=== PATIENT | female | born 1945 | race Caucasian/White ===

== ENCOUNTER 2019-12-21 08:59 | Inpatient (IN) | payer MEDICARE, OTHER ==
--- NOTE | 2019-12-21 09:36 | ED ---
General Adult HPI - General Chief complaint: Shortness of Breath Stated complaint: Dyspnea Time Seen by Provider: 12/21/19 09:01 Source: patient, EMS, RN notes reviewed, old records reviewed (Reviewed records from [facility]) Mode of arrival: ambulatory Limitations: altered mental status - History of Present Illness Initial comments: Patient is a pleasant 74-year-old female presenting to the emergency Department with complaints of difficulty in breathing. Patient is a poor historian. Patient transferred from [facility] for dyspnea. Patient does have history of CHF. Patient amiss to feeling short of breath, further history from her is limited. Evaluation there showed chest x-ray concerning for pulmonary edema/CHF. Also concern for multifocal pneumonia. Rotavirus testing was not done. Patient is DO NOT RESUSCITATE. Patient has elevated BNP level. Unclear how long symptoms have been occurring for. Patient denies any significant cough. No leg pain. No chest pain. - Related Data Home Medications Medication Instructions Recorded Confirmed Acetaminophen [Tylenol] 325 mg PO Q6H PRN MDD 3 GRAMS/24 12/21/19 12/21/19 HOURS Amiodarone [Cordarone] 200 mg PO DAILY@0700 12/21/19 12/21/19 Bisacodyl [Dulcolax] 10 mg PO Q72H PRN 12/21/19 12/21/19 Cholecalciferol [Vitamin D3 (25 1,000 unit PO BID@0700,1900 12/21/19 12/21/19 Mcg = 1000 Iu)] Fluticasone Nasal [place] [Flonase 1 spray EA NOSTRIL DAILY@0700 12/21/19 12/21/19 Nasal [place]] Furosemide [Lasix] 20 mg PO BID@0700,1400 12/21/19 12/21/19 Levothyroxine Sodium [Synthroid] 25 mcg PO DAILY@0500 12/21/19 12/21/19 Loratadine 10 mg PO DAILY@0700 12/21/19 12/21/19 Magnesium Hydroxide [Milk of 2,400 mg PO DAILY PRN 12/21/19 12/21/19 Magnesia] Megestrol [Megace] 40 mg PO BID@0700,1900 12/21/19 12/21/19 Menthol [Nice Cough Drops] 1 lozenge MUCOUS MEM Q4H PRN 12/21/19 12/21/19 Metoprolol Succinate [Toprol XL] 50 mg PO DAILY@69912/21/19 12/21/19 Na Phos,M-B/Na Phos,Di-Ba [Fleet 133 ml RECTAL Q72H PRN 12/21/19 12/21/19 Adult] Nystatin 100,000 Unit/gm Powd 1 applic TOPICAL Q6H PRN 12/21/19 12/21/19 [Mycostatin Powder] Omeprazole 20 mg PO DAILY@189912/21/19 12/21/19 Potassium Chloride [Klor-Con 10] 20 meq PO DAILY@69912/21/19 12/21/19 Rivaroxaban [Xarelto] 15 mg PO DAILY@189912/21/19 12/21/19 Rosuvastatin Calcium [Crestor] 5 mg PO DAILY@69912/21/19 12/21/19 Sennosides-Docusate Sodium 1 tab PO HS@199912/21/19 12/21/19 [Senokot-S] diphenhydrAMINE [Benadryl] 25 mg PO Q6H PRN 12/21/19 12/21/19 guaiFENesin [Diabetic Tussin Ex] 200 mg PO Q4H PRN 12/21/19 12/21/19 traZODone HCL 100 mg PO HS@199912/21/19 12/21/19 Allergies Allergy/AdvReac Type Severity Reaction Status Date / Time No Known Allergies Allergy Unverified 12/21/19 09:22 Review of Systems ROS Statement: Those systems with pertinent positive or pertinent negative responses have been documented in the HPI. ROS Other: All systems not noted in ROS Statement are negative. Constitutional: Denies: fever, chills Eyes: Denies: eye pain ENT: Denies: ear pain Respiratory: Reports: dyspnea. Denies: cough Cardiovascular: Denies: chest pain Endocrine: Reports: fatigue Gastrointestinal: Denies: abdominal pain Genitourinary: Denies: dysuria Musculoskeletal: Denies: back pain Skin: Denies: rash Neurological: Denies: weakness Past Medical History Past Medical History: Atrial Fibrillation, Heart Failure, Hyperlipidemia, Hypertension, Thyroid Disorder Additional Past Medical History / Comment(s): uterine CA - declines treatment History of Any Multi-Drug Resistant Organisms: Unobtainable Past Surgical History: Unable to Obtain Past Psychological History: Depression Smoking Status: Unknown if ever smoked Past Alcohol Use History: None Reported Past Drug Use History: None Reported General Exam Limitations: altered mental status General appearance: alert, in no apparent distress, obese Head exam: Present: normocephalic Eye exam: Present: normal appearance Neck exam: Present: normal inspection Respiratory exam: Present: decreased breath sounds Cardiovascular Exam: Present: regular rate, normal rhythm GI/Abdominal exam: Present: soft. Absent: distended, tenderness Extremities exam: Present: pedal edema. Absent: calf tenderness Neurological exam: Present: alert Expanded Neurological exam: Present: protecting the airway Patient oriented to: Present: person, place Psychiatric exam: Present: normal affect, normal mood Skin exam: Present: normal color Course Vital Signs 12/21/19 09:18 Temperature 98.1 F Pulse Rate 78 Respiratory 20 Rate Blood Pressure 123/73 O2 Sat by Pulse 98 Oximetry - Reevaluation(s) Reevaluation #1: 12/21/19 09:50 Patient did receive IV antibiotics prior to transfer. 12/21/19 09:51 Patient does not meet sepsis criteria. EKG Findings - EKG Comments: EKG Findings:: Sinus rhythm at 70. Left bundle branch block. IN 144. QRS 144. QT 476. QTc 514. Left axis. No acute ST change. Medical Decision Making - Medical Decision Making Patient is made aware of plan. Case was discussed in detail with Dr. Gimenez, who will admit coming for Dr. Pratt. Disposition Clinical Impression: Congestive heart failure, Pneumonia Disposition: ADMITTED IP TO THIS HOSP Condition: Serious Is patient prescribed a controlled substance at d/c from ED?: No Referrals: Mayur Pratt MD [Primary Care Provider] - 1-2 days Decision Time: 09:37
[2019-12-21] MEDS ORDERED: PNEUMONIA PROTOCOL UTILIZED 1 EACH MISC PO PRN (09:47)
[2019-12-21] MEDS ORDERED: IPRATROPIUM-ALBUTEROL 3 ML NEB INHALATION PRN (09:47)
[2019-12-21] MEDS ORDERED: ASPIRIN 325 MG TAB PO STA (09:47)
[2019-12-21] MEDS ORDERED: ALBUTEROL HFA INHALER INHALATION PRN (09:59)
[2019-12-21] MEDS: ALBUTEROL HFA INHALER INHALATION SCH ×3 (10:17→20:03)
[2019-12-21 10:42] LABS: C Reactive Protein 12.5 mg/L (<10.0); Magnesium 2.1 mg/dL (1.6-2.3)
--- NOTE | 2019-12-21 10:56 | XR ---
EXAMINATION TYPE: XR chest 1V portable DATE OF EXAM: 12/21/2019 COMPARISON: Outside chest x-ray earlier today HISTORY: Shortness of breath, suspected Covid pneumonia. TECHNIQUE: Single AP portable frontal upright view of the chest is obtained. FINDINGS: Suboptimal due to patient's large body habitus. Cardiomegaly with atherosclerotic thoracic aorta and overlying dual-lead pacemaker redemonstrated. Bilateral perihilar opacities seen with some extension to the left upper lung. No large pleural effusion or pneumothorax noted bilaterally. IMPRESSION: Cardiomegaly and chronic parenchymal changes with perihilar opacities favoring atelectas is and/or infiltrate with left upper lobe extension. Correlation with more old outside x-ray would be beneficial.
[2019-12-21] MEDS ORDERED: NYSTATIN 100,000 UNIT/GM POWD 15 GM TOPICAL PRN (13:31)
[2019-12-21] MEDS ORDERED: MAGNESIUM HYDROXIDE 2,400 MG/10 ML CUP PO PRN (13:31)
[2019-12-21] MEDS ORDERED: guaiFENesin SYRUP 100MG/5ML 200 MG/10 ML CUP PO PRN (13:31)
--- NOTE | 2019-12-21 13:31 | P.CNPUL ---
History of Present Illness Consult date: 12/21/19 Reason for consult: dyspnea History of present illness: A 74-year-old female patient who was referred to us from [facility] because of worsening shortness of breath. She is a very poor historian. She was transferred to hospital because of worsening shortness of breath which is known to have CHF and she also has a pacemaker as noted on her chest x-ray. She has chronic atrial fibrillation, hypertension, hyperlipidemia and hypothyroidism and the patient has history of uterine cancer along with history of depression. She has been maintained on long-term anticoagulation with Xarelto She has a DNR/DNI status. A covid 19 evaluation has not been done yet.. Currently the patient is on a sinus rhythm with a bundle-branch block pattern on the left. Her oxygenation is adequate at 6 L per minute with a pulse ox of 98%. She was slightly tachypneic at a time of admission and shortness of breath seems to have improved. She was started on examination Rocephin and Zithromax. Covid 19 testing is pending for now. She was also started on Lasix 40 mg IV push every 8 hours. The patient is a very poor historian. She is not aware of her condition and is not also aware of the exact circumstances that led into the hospital. She apparently lives in a facility called [facility]. No fever. No chills. Blood work for that was reviewed. The patient has an elevated BNP above 2500 and the rest of the blood work shows a chronic metabolic alkalosis related to her morbid obesity and possibly a temper sedated effective for chronic hypercapnic respiratory failure. She is not sure if she uses oxygen on a regular basis. She does not utilize any form of CPAP. She is morbidly obese. She is nonambulatory. She is essentially bedridden. She is chronically debilitated. She has a DNR/DNI CODE STATUS. Review of Systems The patient is a poor historian. Constitutional: Reports daytime sleepiness, Reports fatigue, Reports weakness, Reports weight gain Eyes: denies as per HPI, denies blurred vision, denies bulging eye, denies decreased vision, denies diplopia, denies discharge, denies dry eye, denies irritation, denies itching, denies pain, denies photophobia, denies loss of peripheral vision, denies loss of vision, denies tunnel vision/blind spots Ears: deny: decreased hearing, ear discharge, earache, tinnitus Ears, nose, mouth and throat: Denies headache, Denies sore throat Breasts: absent: as per HPI, change in shape, gynecomastia, masses, nipple discharge, pain, skin changes, swelling Cardiovascular: Reports edema Respiratory: Reports dyspnea Gastrointestinal: Reports as per HPI Genitourinary: Reports as per HPI Menstruation: Reports as per HPI Musculoskeletal: Reports as per HPI (Unable to ambulate and the patient is essentially bedridden), Reports frequent falls, Reports gait dysfunction, Reports muscle weakness Musculoskeletal: bilateral: ankle swelling, absent: ankle pain, ankle stiffness Integumentary: Reports as per HPI Neurological: Reports as per HPI, Reports gait dysfunction, Reports lack of coordination, Reports weakness Psychiatric: Reports anhedonia Endocrine: Reports as per HPI Hematologic/Lymphatic: Reports as per HPI Allergic/Immunologic: Reports as per HPI Past Medical History Past Medical History: Atrial Fibrillation, Heart Failure, Hyperlipidemia, Hypertension, Thyroid Disorder Additional Past Medical History / Comment(s): uterine CA - declines treatment History of Any Multi-Drug Resistant Organisms: Unobtainable Past Surgical History: Unable to Obtain Past Psychological History: Depression Smoking Status: Unknown if ever smoked Past Alcohol Use History: None Reported Past Drug Use History: None Reported Medications and Allergies Home Medications Medication Instructions Recorded Confirmed Type Acetaminophen [Tylenol] 325 mg PO Q6H PRN MDD 3 GRAMS/24 12/21/19 12/21/19 History HOURS Amiodarone [Cordarone] 200 mg PO DAILY@0700 12/21/19 12/21/19 History Bisacodyl [Dulcolax] 10 mg PO Q72H PRN 12/21/19 12/21/19 History Cholecalciferol [Vitamin D3 (25 1,000 unit PO BID@0700,1900 12/21/19 12/21/19 Hi story Mcg = 1000 Iu)] Fluticasone Nasal [place] [Flonase 1 spray EA NOSTRIL DAILY@0700 12/21/19 12/21/19 History Nasal [place]] Furosemide [Lasix] 20 mg PO BID@0700,1400 12/21/19 12/21/19 History Levothyroxine Sodium [Synthroid] 25 mcg PO DAILY@0500 12/21/19 12/21/19 History Loratadine 10 mg PO DAILY@0712/21/19 12/21/19 History Magnesium Hydroxide [Milk of 2,400 mg PO DAILY PRN 12/21/19 12/21/19 History Magnesia] Megestrol [Megace] 40 mg PO BID@0700,189912/21/19 12/21/19 History Menthol [Nice Cough Drops] 1 lozenge MUCOUS MEM Q4H PRN 12/21/19 12/21/19 History Metoprolol Succinate [Toprol XL] 50 mg PO DAILY@69912/21/19 12/21/19 History Na Phos,M-B/Na Phos,Di-Ba [Fleet 133 ml RECTAL Q72H PRN 12/21/19 12/21/19 History Adult] Nystatin 100,000 Unit/gm Powd 1 applic TOPICAL Q6H PRN 12/21/19 12/21/19 History [Mycostatin Powder] Omeprazole 20 mg PO DAILY@189912/21/19 12/21/19 History Potassium Chloride [Klor-Con 10] 20 meq PO DAILY@69912/21/19 12/21/19 History Rivaroxaban [Xarelto] 15 mg PO DAILY@189912/21/19 12/21/19 History Rosuvastatin Calcium [Crestor] 5 mg PO DAILY@69912/21/19 12/21/19 History Sennosides-Docusate Sodium 1 tab PO HS@199912/21/19 12/21/19 History [Senokot-S] diphenhydrAMINE [Benadryl] 25 mg PO Q6H PRN 12/21/19 12/21/19 History guaiFENesin [Diabetic Tussin Ex] 200 mg PO Q4H PRN 12/21/19 12/21/19 History traZODone HCL 100 mg PO HS@199912/21/19 12/21/19 History Allergies Allergy/AdvReac Type Severity Reaction Status Date / Time No Known Allergies Allergy Unverified 12/21/19 09:22 Physical Exam Vitals: Vital Signs Temp Pulse Resp BP Pulse Ox 12/21/19 11:00 70 21 111/55 98 12/21/19 10:30 70 13 153/136 12/21/19 10:00 70 18 110/86 99 12/21/19 09:30 70 31 H 123/73 97 12/21/19 09:18 98.1 F 78 20 123/73 98 12/21/19 09:09 70 11 L 123/73 98 Intake and Output 12/20/19 12/21/19 12/21/19 22:59 06:59 14:59 Other: Weight 172.18 kg Gen. appearance the patient is somewhat lethargic and her mentation is altered at this point in time. She is moving all 4 extremities without any limitation. She is in mild degree of respiratory distress. She was slightly tachypneic at time of my evaluation. The patient is morbidly obese. The patient has typical features of obstructive sleep apnea. Head exam was generally normal. There was no scleral icterus or corneal arcus. Mucous membranes were moist. Neck was supple and without jugular venous distension, thyromegaly, or carotid bruits. Carotids were easily palpable bilaterally. There was no adenopathy. The patient has a Mallampati class IV Lungs sounds are diminished and the patient has some crackles in lung bases bilaterally. Heart sounds are regular, positive S1-S2 and there is no significant murmurs appreciated. The patient is a pacemaker over the left anterior chest area. Abdominal exam revealed normal bowel sounds. The abdomen was soft, non-tender, and without masses, organomegaly, or appreciable enlargement of the abdominal aorta. Examination of the extremities revealed easily palpable radial, femoral and pedal pulses. There was no cyanosis, clubbing and there is increased swelling in lower extremities bilaterally. Examination of the skin revealed no evidence of significant rashes, suspicious appearing nevi or other concerning lesions. Neurologically with all 4 extremities and the neurologic exam is nonfocal at this point in time. Results - Laboratory Findings Abnormal lab findings: Abnormal Labs 12/21/19 10:09 Lactate Dehydrogenase 894 H C-Reactive Protein 12.5 H - Diagnostic Findings Chest x-ray: image reviewed Assessment and Plan Plan: 1 shortness of breath likely on the basis of CHF. Superimposed pneumonia, superimposed Covid 19 infection is being ruled out. The patient has typical findings of CHF on chest x-ray in addition to elevated proBNP level increased lower extremity edema. Consider underlying systolic heart failure. 2 acute hypoxic respiratory failure currently on 6 L of oxygen by nasal cannula 3 CHF, see above-mentioned discussion 4 history of pacemaker insertion 5 history of proximal atrial fibrillation currently in sinus rhythm 6 the patient's rhythm seems to be regular at the rate of 70, possibly paced for now based on EKG findings which shows interventricular conduction delay/LBBB pattern at the rate of 70. 7 hypertension 8 hyperlipidemia 9 hypothyroidism 10 history of uterine cancer 11 history of depression 12 chronic metabolic alkalosis, Necessity for chronic hypercapnic respiratory failure as the patient is morbidly obese and she has typical features of ZAID/obesity hypoventilation syndrome 13 morbid obesity with a BMI of 63.2 14 poor historian Plan Continue Lasix 40 mg every 8 hours Continue current antibiotic coverage Nasopharyngeal swab for Covid 19 infection Proceed with an echocardiogram Wean down the FiO2 to maintain a saturation above 90% Check thyroid function test Monitor electrolytes with particular attention towards her serum bicarbonate the patient is being diuresis and she may end of retaining more CO2 We'll reconsult her medication including Xarelto and metoprolol and amiodarone Restart the patient on Synthroid 25 mg by mouth daily and check levels Continue to follow
[2019-12-21 13:50] VITALS: BMI 63.1
--- NOTE | 2019-12-21 15:34 | CONS ---
CONSULTATION CHIEF COMPLAINT: Shortness of breath. Carline is a 74-year-old lady with history of paroxysmal atrial fibrillation, sick sinus syndrome status post permanent pacemaker, hypertension, hypothyroidism who is transferred from [facility] following presentation with shortness of breath. She lives in [facility] where she was apparently found to be cyanotic. She was sent to the emergency room with a non-rebreather and sent her over to [facility] for further care. The patient denies chest pain, difficulty in breathing, leg edema, PND or orthopnea. After coming here, she had a chest x-ray that shows cardiomegaly with bilateral perihilar opacities without any pleural effusion or pneumothorax. Her EKG shows paced rhythm with underlying sinus mechanism, I do not have any other labs on her. She did not have any other labs at this facility as she already had been worked up at the other end. I have evaluated her over the phone as the clinical presentation is consistent with Covid infection including hypoxia without much shortness of breath, multifocal pneumonia on chest x-ray and her staying in a long-term care facility. Due to this, I am evaluating the patient over the phone until the coronavirus results come back to decrease the exposure to the virus and to cut down the use of personal protective equipment. The patient has already been physically evaluated by an ER physician. The patient denies any distress at the moment. I reviewed the workup she had at the other hospital. She had a BNP that was elevated at 2450. A hemoglobin of 11.5, white count of 8.5, potassium is 4.3, BUN is 19. Given the chest x-ray changes, the hypoxia, we are going to treat her with IV Lasix for the possibility that she has congestive heart failure of unclear etiology. PAST MEDICAL HISTORY: Significant for atrial fibrillation, sick sinus syndrome status post permanent pacemaker, hypothyroidism, hypertension. MEDICATIONS: Medications at home include Benadryl and trazodone, Toprol-XL, Megace, milk of magnesia, Synthroid, Lasix, fluticasone, amiodarone, bisacodyl. ALLERGIES: There are no known drug allergies. FAMILY HISTORY: Negative for premature coronary artery disease. SOCIAL HISTORY: Negative for current smoking, EtOH or drug abuse. REVIEW OF SYSTEMS: HEENT is unremarkable. CARDIAC as described above. RESPIRATORY as described above. GI negative. : Negative. ALLERGY none. IMMUNOLOGY: Negative. SKIN negative. MUSCULOSKELETAL significant for arthritis. PSYCHOSOCIAL negative. ENDOCRINE negative. DERM negative. CONSTITUTIONAL negative for fever, chills. EXAM: Patient is afebrile. Heart rate is 70 beats per minute. Blood pressure is 111/55, respiratory rate 20, O2 sat is 98%. EKG shows paced rhythm. I have reviewed the chest x-ray which shows diffuse bilateral infiltrate. Chest x-ray finding could go with Covid pneumonia. ASSESSMENT: 1. Shortness of breath, rule out viral pneumonia. 2. Paroxysmal atrial fibrillation. 3. Sick sinus syndrome status post permanent pacemaker, rule out congestive heart failure. PLAN: I will treat the patient with IV Lasix. Continue with IV Lasix. She is currently on antibiotics for possible community-acquired pneumonia and I will see what the echo shows. I am going to renew her home medications including the Xarelto and Toprol-XL. We will optimize her therapies with how her condition evolves. MMODL / IJN: [id number] /
[2019-12-21] MEDS: FUROSEMIDE 10 MG/ML 4 ML VIAL IV SCH ×2 (15:58→19:02)
[2019-12-21] MEDS: NITROGLYCERIN OINT 1 INCH/GM PACKET TOPICAL SCH ×4 (15:58→21:21)
[2019-12-21 16:28] LABS: Ferritin 15.3 ng/mL (10.0-291.0)
[2019-12-21] MEDS: RIVAROXABAN 15 MG TAB PO SCH (18:59)
[2019-12-21] MEDS: PANTOPRAZOLE 40 MG TABLET PO SCH (18:59)
[2019-12-21] MEDS: traZODone HCL 100 MG TAB PO SCH (21:20)
--- NOTE | 2019-12-21 22:18 | P.HPIM ---
History of Present Illness H&P Date: 12/21/19 Chief Complaint: Decreased saturation History of presenting complaint: This is a 74-year-old patient who follows with Dr. Mayur Pratt. Patient is a resident of [facility]. Chronic stable medical conditions include obesity, atrial fibrillation, permanent pacemaker, some cognitive impairment. Patient is able to answer simple questions not much details. Patient presented to the [facility] where her pulse ox was found to be down to 70% at the rehab center. Patient's proBNP was found to be 2450 and checks x-ray was suggestive of pneumonia and congestive heart failure. Patient was given Lasix and was transferred down here. Patient has a small troponin leak. This unclear if patient has chronic oxygen. Patient is put on nonrebreather there. Patient's primary much bedbound nonambulatory. Review of systems: GEN.: Tired EYES: None HEENT: None NECK: None RESPIRATORY: As above CARDIOVASCULAR: None GASTROINTESTINAL: None GENITOURINARY: None MUSCULOSKELETAL: Some joint pains LYMPHATICS: None HEMATOLOGICAL: None PSYCHIATRY: Forgetful NEUROLOGICAL: None Past medical history to include: Persistent atrial fibrillation, congestive heart failure, hyperlipidemia, hypertension, hypothyroid, uterine cancer patient declined treatment, d epression, morbid obesity Social history: Currently resident at [facility], no smoking or alcohol. Physical examination: VITAL SIGNS: 98.1, 78, 20, 100 2273, 98% on 6 L GENERAL: BMI 60.2, propped up in bed, but tired. EYES: Pupils equal. Conjunctiva normal. HEENT: External appearance of nose and ears normal, oral cavity grossly normal. NECK: JVD unable to assess masses not palpable. HEART: First and second heart sounds are normal; no edema. LUNGS: Respiratory rate increased, diminished breath sounds. ABDOMEN: Soft, nontender, liver spleen not palpable, no masses palpable. PSYCH: [Patient and also some simple questions. L. NEUROLOGICAL: Cranial nerves grossly intact; no facial asymmetry, power and sensation grossly intact. LYMPHATICS: No lymph nodes palpable in the axilla and neck INVESTIGATIONS, reviewed in the clinical context: Duran-19 PCR-not detected, pro calcitonin 0.06 Blood or from [facility] shows: EKG-left bundle multiblock personally reviewed by me -Sodium 148 potassium 4.3 bun 19 creatinine 0.6 white count 8.4 hemoglobin 11.5 is 271 proBNP 2450 troponin I 0.0-6 Chest x-ray shows both pneumonia and CHF Assessment: -Probable pneumonia suspect gram-negative organism, POA -Acute congestive heart exacerbation EF not known -Morbid obesity BMI 63.2 -Permanent atrial fibrillation -Permanent pacemaker -CODE STATUS DO NOT RESUSCITATE -Moderate cognitive impairment -Hypothyroid -Chronic medical debility -Essential hypertension -Troponin leak from hemodynamic mismatch. No clinical evidence of acute coronary syndrome Plan: Patient started on Zithromax and ceftriaxone. bronchodilators. Home medications resumed. Care was discussed with the patient question were answered. Patient seems to have somewhat limited understanding of her conditions. Pulmonary was consulted. Past Medical History Past Medical History: Atrial Fibrillation, Heart Failure, Hyperlipidemia, Hypertension, Thyroid Disorder Additional Past Medical History / Comment(s): uterine CA - declines treatment History of Any Multi-Drug Resistant Organisms: Unobtainable Past Surgical History: Unable to Obtain Past Psychological History: Depression Smoking Status: Unknown if ever smoked Past Alcohol Use History: None Reported Past Drug Use History: None Reported - Past Family History Mother Additional Family Medical History / Comment(s): Mother of colon cancer Medications and Allergies Home Medications Medication Instructions Recorded Confirmed Type Acetaminophen [Tylenol] 325 mg PO Q6H PRN MDD 3 GRAMS/24 12/21/19 12/21/19 History HOURS Amiodarone [Cordarone] 200 mg PO DAILY@0700 12/21/19 12/21/19 History Bisacodyl [Dulcolax] 10 mg PO Q72H PRN 12/21/19 12/21/19 History Cholecalciferol [Vitamin D3 (25 1,000 unit PO BID@0700,1900 12/21/19 12/21/19 History Mcg = 1000 Iu)] Fluticasone Nasal Blairs [Flonase 1 spray EA NOSTRIL DAILY@0700 12/21/19 12/21/19 History Nasal Blairs] Furosemide [Lasix] 20 mg PO BID@0700,1400 12/21/19 12/21/19 History Levothyroxine Sodium [Synthroid] 25 mcg PO DAILY@0500 12/21/19 12/21/19 History Loratadine 10 mg PO DAILY@0700 12/21/19 12/21/19 History Magnesium Hydroxide [Milk of 2,400 mg PO DAILY PRN 12/21/19 12/21/19 History Magnesia] Megestrol [Megace] 40 mg PO BID@0700,189912/21/19 12/21/19 History Menthol [Nice Cough Drops] 1 lozenge MUCOUS MEM Q4H PRN 12/21/19 12/21/19 History Metoprolol Succinate [Toprol XL] 50 mg PO DAILY@0712/21/19 12/21/19 History Na Phos,M-B/Na Phos,Di-Ba [Fleet 133 ml RECTAL Q72H PRN 12/21/19 12/21/19 History Adult] Nystatin 100,000 Unit/gm Powd 1 applic TOPICAL Q6H PRN 12/21/19 12/21/19 History [Mycostatin Powder] Omeprazole 20 mg PO DAILY@189912/21/19 12/21/19 History Potassium Chloride [Klor-Con 10] 20 meq PO DAILY@69912/21/19 12/21/19 History Rivaroxaban [Xarelto] 15 mg PO DAILY@189912/21/19 12/21/19 History Rosuvastatin Calcium [Crestor] 5 mg PO DAILY@69912/21/19 12/21/19 History Sennosides-Docusate Sodium 1 tab PO HS@199912/21/19 12/21/19 History [Senokot-S] diphenhydrAMINE [Benadryl] 25 mg PO Q6H PRN 12/21/19 12/21/19 History guaiFENesin [Diabetic Tussin Ex] 200 mg PO Q4H PRN 12/21/19 12/21/19 History traZODone HCL 100 mg PO HS@199912/21/19 12/21/19 History Allergies Allergy/AdvReac Type Severity Reaction Status Date / Time No Known Allergies Allergy Unverified 12/21/19 09:22 Physical Exam Vitals: Vital Signs Temp Pulse Pulse Resp BP BP Pulse Ox 12/21/19 20:00 97.9 F 70 18 118/56 98 12/21/19 16:21 94 L 12/21/19 16:00 60 22 131/58 95 12/21/19 11:00 70 21 111/55 98 12/21/19 10:30 70 13 153/136 12/21/19 10:00 70 18 110/86 99 12/21/19 09:30 70 31 H 123/73 97 12/21/19 09:18 98.1 F 78 20 123/73 98 12/21/19 09:09 70 11 L 123/73 98 Intake and Output 12/21/19 12/21/19 12/21/19 06:59 14:59 22:59 Intake Total 230 Balance 230 Intake: Oral 230 Other: Voiding Method Indwelling Catheter Weight 172.18 kg Results Labs: Abnormal Lab Results - Last 24 Hours (Table) 12/21/19 Range/Units 10:09 Lactate Dehydrogenase 894 H (313-618) U/L C-Reactive Protein 12.5 H (<10.0) mg/L Thrombosis Risk Factor Assmnt - Choose All That Apply Each Factor Represents 1 point: Heart failure (<1month), Obesity (BMI >25) Each Risk Factor Represents 2 Points: Patient confined to bed Thrombosis Risk Factor Assessment Total Risk Factor Score: 4 Thrombosis Risk Factor Assessment Level: Moderate Risk
[2019-12-22] MEDS: FUROSEMIDE 10 MG/ML 4 ML VIAL IV SCH ×2 (02:15→09:36)
[2019-12-22] MEDS: LEVOTHYROXINE 25 MCG TAB PO SCH (06:01)
[2019-12-22] MEDS: AMIODARONE 200 MG TAB PO SCH (06:01)
[2019-12-22] MEDS: METOPROLOL SUCCINATE (ER) 50 MG TAB.ER.24H PO SCH (06:01)
--- NOTE | 2019-12-22 07:30 | XR ---
EXAMINATION TYPE: XR chest 1V portable DATE OF EXAM: 12/22/2019 HISTORY: pneumonia. REFERENCE: Previous study dated 12/21/2019. FINDINGS: There is a bipolar pacemaker place on the left. The heart is enlarged. There are patchy, bilateral pneumonias. These are essentially unchanged from p revious. There is blunting of both CP angles and I could not exclude small effusions. IMPRESSION: 1. CARDIOMEGALY. 2. PATCHY BILATERAL INFILTRATES. 3. I CANNOT EXCLUDE SMALL, BILATERAL EFFUSIONS.
[2019-12-22] MEDS: ALBUTEROL HFA INHALER INHALATION SCH ×4 (07:31→19:31)
[2019-12-22] MEDS ORDERED: ASPIRIN 325 MG TAB PO SCH (09:00)
[2019-12-22] MEDS: NITROGLYCERIN OINT 1 INCH/GM PACKET TOPICAL SCH ×2 (09:37→16:29)
[2019-12-22] MEDS: AZITHROMYCIN 500 MG TAB PO SCH (09:37)
[2019-12-22 10:10] LABS: Anisocytosis Slight; Basophils % (A) 0 %; Eosinophils # (A) 0.3 k/uL (0-0.7); Eosinophils % (A) 4 %; HCT 38.3 % (34.0-46.0); HGB 10.9 gm/dL (11.4-16.0); Hypochromasia Marked; Lymphocytes # (A) 0.8 k/uL (1.0-4.8); Lymphocytes % (A) 10 %; MCH 27.1 pg (25.0-35.0); MCHC 28.5 g/dL (31.0-37.0); Mean Platelet Volume 7.1; Monocytes # (A) 0.6 k/uL (0-1.0); Monocytes % (A) 8 %; Neutrophils # (A) 6.1 k/uL (1.3-7.7); Neutrophils % (A) 77 %; Platelet Count 233 k/uL (150-450); RBC 4.04 m/uL (3.80-5.40); RDW 16.5 % (11.5-15.5); WBC 7.9 k/uL (3.8-10.6)
[2019-12-22 10:34] LABS: ALT 15 U/L (4-34); AST 22 U/L (14-36); African American GFR (CKD) >90 (>60 ml/min/1.73 sqM); Albumin 3.1 g/dL (3.5-5.0); Alkaline Phosphatase 52 U/L (38-126); Blood Urea Nitrogen 15 mg/dL (7-17); Calcium 8.7 mg/dL (8.4-10.2); Chloride 84 mmol/L (98-107); Glucose 167 mg/dL (74-99); Non-African American GFR(CKD) 89 (>60 ml/min/1.73 sqM); Potassium 3.9 mmol/L (3.5-5.1); Sodium 139 mmol/L (137-145); Total Bilirubin 0.7 mg/dL (0.2-1.3); Total Protein 5.8 g/dL (6.3-8.2)
[2019-12-22 10:40] LABS: Anion Gap 3 mmol/L
[2019-12-22 10:44] LABS: Carbon Dioxide 52 mmol/L (22-30)
--- NOTE | 2019-12-22 11:28 | P.PN ---
Subjective Progress Note Date: 12/22/19 Principal diagnosis: Acute exacerbation of suspected systolic congestive heart failure A 74-year-old female patient who was referred to us from [facility] because of worsening shortness of breath. She is a very poor historian. She was transferred to hospital because of worsening shortness of breath which is known to have CHF and she also has a pacemaker as noted on her chest x-ray. She has chronic atrial fibrillation, hypertension, hyperlipidemia and hypothyroidism and the patient has history of uterine cancer along with history of depression. She has been maintained on long-term anticoagulation with Xarelto She has a DNR/DNI status. A covid 19 evaluation has not been done yet.. Currently the patient is on a sinus rhythm with a bundle-branch block pattern on the left. Her oxygenation is adequate at 6 L per minute with a pulse ox of 98%. She was slightly tachypneic at a time of admission and shortness of breath seems to have improved. She was started on examination Rocephin and Zithromax. Covid 19 testing is pending for now. She was also started on Lasix 40 mg IV push every 8 hours. The patient is a very poor historian. She is not aware of her condition and is not also aware of the exact circumstances that led into the hospital. She apparently lives in a facility called [facility]. No fever. No chills. Blood work for that was reviewed. The patient has an elevated BNP above 2500 and the rest of the blood work shows a chronic metabolic alkalosis related to her morbid obesity and possibly a temper sedated effective for chronic hypercapnic respiratory failure. She is not sure if she uses oxygen on a regular basis. She does not utilize any form of CPAP. She is morbidly obese. She is nonambulatory. She is essentially bedridden. She is chronically debilitated. She has a DNR/DNI CODE STATUS. The patient was seen today 12/22/2019 in follow-up on the regular medical floor. She is currently resting in bed. Awake and alert in no acute distress. Maintaining O2 saturation in the 90s on 4 L/m per nasal cannula. She's afebrile. Hemodynamically stable. Chest x-ray reveals evidence of cardiomegaly, patchy bilateral infiltrates, small bilateral effusions. White count 7.9. Hemoglobin 10.9. Sodium 139. Potassium 3.9. Bicarb 52. Creatinine 0.65. Chronic virus not detected. She remains on antibiotics in the form of ceftriaxone and azithromycin. Anticoagulated with Xarelto. Currently on Lasix 40 mg every 8 hours. Objective - Vital Signs Vital signs: Vital Signs Temp 98.7 F 12/22/19 08:00 Pulse 70 12/22/19 08:00 Resp 16 12/22/19 08:00 BP 105/44 12/22/19 08:00 Pulse Ox 93 L 12/22/19 08:00 Intake & Output 12/21/19 12/22/19 12/22/19 18:59 06:59 18:59 Intake Total 230 90 Output Total 850 Balance 230 -850 90 Weight 172.18 kg 176 kg Intake: Oral 230 90 Output: Urine 850 Other: Voiding Method Indwelling Catheter Indwelling Catheter - Exam Gen. appearance: A 74-year-old female patient, somewhat lethargic and her mentation is altered at this point in time. She is moving all 4 extremities without any limitation. She is in mild degree of respiratory distress. She was slightly tachypneic at time of my evaluation. The patient is morbidly obese. The patient has typical features of obstructive sleep apnea. Head exam was generally normal. There was no scleral icterus or corneal arcus. Mucous membranes were moist. Neck was supple and without jugular venous distension, thyromegaly, or carotid bruits. Carotids were easily palpable bilaterally. There was no adenopathy. The patient has a Mallampati class IV Lungs sounds are diminished and the patient has some crackles in lung bases bilaterally. Heart sounds are regular, positive S1-S2 and there is no significant murmurs appreciated. The patient is a pacemaker over the left anterior chest area. Abdominal exam revealed normal bowel sounds. The abdomen was soft, non-tender, and without masses, organomegaly, or appreciable enlargement of the abdominal aorta. Examination of the extremities revealed easily palpable radial, femoral and pedal pulses. There was no cyanosis, clubbing and there is increased swelling in lower extremities bilaterally. Examination of the skin revealed no evidence of significant rashes, suspicious appearing nevi or other concerning lesions. Neurologically with all 4 extremities and the neurologic exam is nonfocal at this point in time. - Labs CBC & Chem 7: 12/22/19 09:49 12/22/19 09:49 Labs: Abnormal Lab Results - Last 24 Hours (Table) 12/22/19 12/22/19 Range/Units 09:49 09:49 Hgb 10.9 L (11.4-16.0) gm/dL MCHC 28.5 L (31.0-37.0) g/dL RDW 16.5 H (11.5-15.5) % Lymphocytes # 0.8 L (1.0-4.8) k/uL Chloride 84 L (98-107) mmol/L Carbon Dioxide 52 H* (22-30) mmol/L Glucose 167 H (74-99) mg/dL Total Protein 5.8 L (6.3-8.2) g/dL Albumin 3.1 L (3.5-5.0) g/dL Assessment and Plan Assessment: 1 shortness of breath likely on the basis of CHF. Superimposed pneumonia, Covid 19 infection is ruled out. The patient has typical findings of CHF on chest x- ray in addition to elevated proBNP level increased lower extremity edema. Consider underlying systolic heart failure. Echocardiogram pending 2 acute hypoxic/hypercapnic respiratory failure currently on 4 L of oxygen by nasal cannula 3 CHF, see above-mentioned discussion 4 history of pacemaker insertion 5 history of proximal atrial fibrillation currently in sinus rhythm 6 the patient's rhythm seems to be regular at the rate of 70, possibly paced for now based on EKG findings which shows interventricular conduction delay/LBBB pattern at the rate of 70. 7 hypertension 8 hyperlipidemia 9 hypothyroidism 10 history of uterine cancer 11 history of depression 12 chronic metabolic alkalosis, Necessity for chronic hypercapnic respiratory failure as the patient is morbidly obese and she has typical features of ZAID/obesity hypoventilation syndrome 13 morbid obesity with a BMI of 63.2 14 poor historian Plan The patient was seen and evaluated by Dr. Buenrostro Chest x-ray and labs reviewed Decrease Lasix to 40 mg IV daily Continue antibiotics for now Echocardiogram pending We'll continue to follow I, the cosigning physician, performed a history & physical examination of the patient. Lungs sounds crackles in the bilateral posterior bases. Maintaining good O2 saturations in the 90s on 4 L/m per nasal cannula. I discussed the assessment and plan of care with my nurse practitioner, Janiya rGimm. I attest to the above note as dictated by her.
--- NOTE | 2019-12-22 12:11 | ECHOF ---
Referral Reason:Admission for CHF/shortness of breath MEASUREMENTS -------- HEIGHT: 165.1 cm WEIGHT: 176.0 kg BP: 149/52 RVIDd: 3.5 cm (< 3.3) IVSd: 1.9 cm (0.6 - 1.1) LVIDd: 3.5 cm (3.9 - 5.3) LVPWd: 1.9 cm (0.6 - 1.1) IVSs: 2.3 cm LVIDs: 2.7 cm LVPWs: 1.9 cm LA Diam: 4.0 cm (2.7 - 3.8) LAESV Index (A-L): 28.61 ml/m Ao Diam: 3.0 cm (2.0 - 3.7) AV Cusp: 2.0 cm (1.5 - 2.6) MV EXCURSION: 18.438 mm (> 18.000) MV EF SLOPE: 90 mm/s (70 - 150) EPSS: 0.4 cm MV E Aureliano: 1.39 m/s MV DecT: 221 ms MV A Aureliano: 0.63 m/s MV E/A Ratio: 2.19 AV maxP.09 mmHg AV meanP.91 mmHg RAP: 5.00 mmHg RVSP: 44.14 mmHg FINDINGS -------- Paced rhythm. This was a technically difficult study with suboptimal parasternal views. The left ventricular size is normal. There is severe concentric left ventricular hypertrophy. Ove rall left ventricular systolic function is normal with, an EF between 60 - 65 %. The right ventricle is mildly enlarged. The left atrium is mildly dilated. The right atrium was not well visualized. Interatrial and interventricular septum intact. There is mild aortic valve sclerosis. There is mild aortic stenosis present. Peak/mean gradient a cross the Aortic Valve is 19.09mmHg / 10.91mmHg. The mitral valve leaflets are mildly thickened. Mild mitral annular calcification present. Mild m itral regurgitation is present. Mild tricuspid regurgitation present. There is mild pulmonary hypertension. The right ventricular systolic pressure, as measured by Doppler, is 44.14mmHg. The pulmonic valve was not well visualized. The aortic root size is normal. Normal inferior vena cava with normal inspiratory collapse consistent with estimated right atrial pre ssure of 5 mmHg. The inferior vena cava is mildly dilated. There is no pericardial effusion. CONCLUSIONS -------- 1. Paced rhythm. 2. This was a technically difficult study with suboptimal parasternal views. 3. The left ventricular size is normal. 4. There is severe concentric left ventricular hypertrophy. 5. Overall left ventricular systolic function is normal with, an EF between 60 - 65 %. 6. The right ventricle is mildly enlarged. 7. The left atrium is mildly dilated. 8. The right atrium was not well visualized. 9. Interatrial and interventricular septum intact. 10. There is mild aortic valve sclerosis. 11. There is mild aortic stenosis present. 12. Peak/mean gradient across the Aortic Valve is 19.09mmHg / 10.91mmHg. 13. The mitral valve leaflets are mildly thickened. 14. Mild mitral annular calcification present. 15. Mild mitral regurgitation is present. 16. Mild tricuspid regurgitation present. 17. There is mild pulmonary hypertension. 18. The right ventricular systolic pressure, as measured by Doppler, is 44.14mmHg. 19. The pulmonic valve was not well visualized. 20. The aortic root size is normal. 21. Normal inferior vena cava with normal inspiratory collapse consistent with estimated right atrial pressure of 5 mmHg. 22. The inferior vena cava is mildly dilated. 23. There is no pericardial effusion. OLDER WORKER SPECIALIST: Yaz Cazares RDCS
--- NOTE | 2019-12-22 13:41 | P.PN ---
Subjective Progress Note Date: 12/22/19 This is a 74-year-old female patient with past medical history of paroxysmal atrial fibrillation, sick sinus syndrome status post permanent pacemaker, hypertension, hypothyroidism. Patient was transferred from [facility] due to shortness of breath. She lives at [facility] and was found to be cyanotic and was brought into the emergency center there on a nonrebreather. Patient denied having any chest pain, difficulty breathing, leg edema, PND, orthopnea upon initial evaluation here. Chest x-ray showed cardiomegaly with bilateral perihilar opacities without any pleural effusion or pneumothorax. EKG was a paced rhythm with underlying sinus mechanism. Patient was started on IV Lasix at home medications including amiodarone, metoprolol and Xarelto. Patient is seen today in follow-up and states that her breathing is better today. Chest x-ray reveals evidence of cardiomegaly, patchy bilateral infiltrates and small bilateral effusions. WBC 7.9, hemoglobin 10.9, sodium 139, potassium 3.9, bicarb 52, creatinine 2.65.Coronavirus PCR not detected. She is currently on antibiotics with ceftriaxone and azithromycin. Lasix is at 40 mg IV every 8 hours. Echocardiogram reveals EF of 60-65%, mild aortic valve sclerosis, mild aortic stenosis, mild mitral regurgitation, mild tricuspid regurgitation, mild pulmonary hypertension Gen: This is a morbidly obese 74-year-old female. Patient is resting bed and appears to be comfortable and in no acute distress VS: Afebrile heart rate 70, blood pressure 105/44, pulse ox 93% on 4 L nasal cannula HEENT: Head is atraumatic, normocephalic. Pupils equal, round. Sclerae is anicteric. NECK: Supple. No JVD. No lymphadenopathy. No thyromegaly. LUNGS: Mild crackles bilateral bases. No intercostal retractions. HEART: Regular rate and rhythm. No murmur. ABDOMEN: Soft. Bowel sounds are present. No masses. No tenderness. EXTREMITIES: 1+ pedal edema. No calf tenderness. NEUROLOGICAL: Patient is awake, alert and oriented x3. Cranial nerves 2 through 12 are grossly intact. Assessment: Acute on chronic diastolic heart failure Acute hypoxic respiratory failure History of pacemaker Paroxysmal atrial fibrillation on Xarelto Hypertension Hyperlipidemia Hypothyroidism History of uterine cancer Morbid obesity Plan: Lasix has been decreased to 40 mg IV daily Continue amiodarone at 200 mg daily and Toprol-XL 50 mg daily Continue Xarelto Further recommendations to follow based upon clinical condition Nurse practitioner note has been reviewed, I agree with documented findings and plan of care. Patient was seen and examined. Objective - Vital Signs Vital signs: Vital Signs Temp 98.7 F 12/22/19 08:00 Pulse 70 12/22/19 08:00 Resp 16 12/22/19 08:00 BP 105/44 12/22/19 08:00 Pulse Ox 93 L 12/22/19 08:00 Intake & Output 12/21/19 12/22/19 12/22/19 18:59 06:59 18:59 Intake Total 230 90 Output Total 850 Balance 230 -850 90 Weight 172.18 kg 176 kg Intake: Oral 230 90 Output: Urine 850 Other: Voiding Method Indwelling Catheter Indwelling Catheter - Labs CBC & Chem 7: 12/22/19 09:49 12/22/19 09:49 Labs: Abnormal Lab Results - Last 24 Hours (Table) 12/21/19 Range/Units 10:09 Lactate Dehydrogenase 894 H (313-618) U/L C-Reactive Protein 12.5 H (<10.0) mg/L
[2019-12-22 15:05] LABS: ABG Oxygen Saturation 96.1 % (94-97); ABG PH 7.48 (7.35-7.45); ABG PO2 79 mmHg (83-108); ABG TCO2 57 mmol/L (19-24); Allen Test Performed? Yes
[2019-12-22 15:09] LABS: ABG PCO2 74 mmHg (35-45)
[2019-12-22 15:10] LABS: ABG Base Excess 31.7 mmol/L; ABG HCO3 55 mmol/L (21-25)
--- NOTE | 2019-12-22 18:30 | P.PN ---
Progress Note - Text Progress Note Date: 12/22/19 Chief Complaint: Decreased saturation History of presenting complaint: This is a 74-year-old patient who follows with Dr. Mayur Pratt. Patient is a resident of [facility]. Chronic stable medical conditions include obesity, atrial fibrillation, permanent pacemaker, some cognitive impairment. Patient is able to answer simple questions not much details. Patient presented to the [facility] where her pulse ox was found to be down to 70% at the rehab center. Patient's proBNP was found to be 2450 and checks x-ray was suggestive of pneumonia and congestive heart failure. Patient was given Lasix and was transferred down here. Patient has a small troponin leak. This unclear if patient has chronic oxygen. Patient is put on nonrebreather there. Patient's primary much bedbound nonambulatory. Admitted with CHF exacerbation and pneumonia. Started on Zithromax, IV ceftriaxone, IV Lasix. Today-breathing better. Did tolerate some diet. Resting in bed. Minimal cough Review of systems: Was done for constitutional, cardiovascular, GI, pulmonary. relevant finding as above Active Medications Albuterol Sulfate (Ventolin Hfa Inhaler) 2 puff INHALATION RT-QID [facility] Last Admin: 12/22/19 15:13 Dose: 2 puff Documented by: Albuterol Sulfate (Ventolin Hfa Inhaler) 2 puff INHALATION RT-Q4H PRN PRN Reason: shortness of breath Amiodarone HCl (Cordarone) 200 mg PO DAILY@0700 [facility] Last Admin: 12/22/19 06:01 Dose: 200 mg Documented by: Aspirin (Aspirin) 325 mg PO DAILY [facility] Last Admin: 12/22/19 09:37 Dose: 325 mg Documented by: Azithromycin (Zithromax) 500 mg PO DAILY [facility] Last Admin: 12/22/19 09:37 Dose: 500 mg Documented by: Furosemide (Lasix) 40 mg IV DAILY [facility] Guaifenesin (Robitussin) 200 mg PO Q4H PRN PRN Reason: Cough Ceftriaxone Sodium 1 gm/ (Sodium Chloride) 50 mls @ 100 mls/hr IVPB Q24HR [facility] Stop: 12/25/19 09:01 Last Admin: 12/22/19 09:37 Dose: 100 mls/hr Documented by: Levothyroxine Sodium (Synthroid) 25 mcg PO DAILY@0500 [facility] Last Admin: 12/22/19 06:01 Dose: 25 mcg Documented by: Magnesium Hydroxide (Milk Of Magnesia) 2,400 mg PO DAILY PRN PRN Reason: Constipation Metoprolol Succinate (Toprol Xl) 50 mg PO DAILY@0700 [facility] Last Admin: 12/22/19 06:01 Dose: 50 mg Documented by: Miscellaneous Information (Pneumonia Protocol Utilized) 1 each PO ONCE PRN PRN Reason: Per Protocol Nitroglycerin (Nitro-Bid Oint) 1 inch TOPICAL QID [facility] Last Admin: 12/22/19 16:29 Dose: 1 inch Documented by: Nystatin (Mycostatin Powder) 1 applic TOPICAL Q6H PRN PRN Reason: YEAST Pantoprazole Sodium (Protonix) 40 mg PO DAILY@190 [facility] Last Admin: 12/21/19 18:59 Dose: 40 mg Documented by: Rivaroxaban (Xarelto) 15 mg PO DAILY@190 [facility] Last Admin: 12/21/19 18:59 Dose: 15 mg Documented by: Sodium Chloride (Saline Flush) 10 ml IV BID [facility] Last Admin: 12/22/19 09:46 Dose: 10 ml Documented by: Trazodone HCl (Desyrel) 100 mg PO HS@2000 [facility] Last Admin: 12/21/19 21:20 Dose: 100 mg Documented by: Physical examination: VITAL SIGNS: 98.9, 70, 16, 102/70, 98% on 4 L GENERAL: Propped up in bed, more comfortable EYES: Pupils equal. Conjunctiva normal. HEENT: External appearance of nose and ears normal, oral cavity grossly normal. NECK: JVD unable to assess masses not palpable. HEART: First and second heart sounds are normal; no edema. LUNGS: Respiratory rate increased, diminished breath sounds. ABDOMEN: Soft, nontender, liver spleen not palpable, no masses palpable. PSYCH: Answering simple questions INVESTIGATIONS, reviewed in the clinical context: White count 7.9 hemoglobin 10.9 potassium 3.9 bun 15 bicarbonate-52 Blood or from [facility] shows: EKG-left bundle multiblock personally reviewed by ga -Sodium 148 potassium 4.3 bun 19 creatinine 0.6 white count 8.4 hemoglobin 11.5 is 271 proBNP 2450 troponin I 0.0-6 Chest x-ray shows both pneumonia and CHF COVID-19 PCR-not detected, pro calcitonin 0.06 Assessment: -Probable pneumonia suspect gram-negative organism, POA -Acute congestive heart exacerbation EF not known, POA -Acute hypoxic and hypercapnic respiratory failure, POA -Morbid obesity BMI 63.2 -Permanent atrial fibrillation -Permanent pacemaker -CODE STATUS DO NOT RESUSCITATE -Moderate cognitive impairment -Hypothyroid -Chronic medical debility -Essential hypertension -Troponin leak from hemodynamic mismatch. No clinical evidence of acute coronary syndrome -Chronic metabolic alkalosis compensated Plan: on Zithromax and ceftriaxone. Decreased dose of Lasix. Decrease FiO2. Add Diamox
[2019-12-22] MEDS: RIVAROXABAN 15 MG TAB PO SCH (20:41)
[2019-12-22] MEDS: traZODone HCL 100 MG TAB PO SCH (20:41)
[2019-12-22] MEDS: PANTOPRAZOLE 40 MG TABLET PO SCH (20:41)
[2019-12-23] MEDS: AMIODARONE 200 MG TAB PO SCH (06:21)
[2019-12-23] MEDS: METOPROLOL SUCCINATE (ER) 50 MG TAB.ER.24H PO SCH (06:21)
[2019-12-23] MEDS: LEVOTHYROXINE 25 MCG TAB PO SCH (06:21)
[2019-12-23] MEDS: ALBUTEROL HFA INHALER INHALATION SCH ×4 (07:11→21:01)
[2019-12-23 08:00] LABS: African American GFR (CKD) >90 (>60 ml/min/1.73 sqM); Blood Urea Nitrogen 11 mg/dL (7-17); Calcium 8.6 mg/dL (8.4-10.2); Chloride 86 mmol/L (98-107); Glucose 108 mg/dL (74-99); Non-African American GFR(CKD) 79 (>60 ml/min/1.73 sqM); Potassium 3.1 mmol/L (3.5-5.1); Sodium 137 mmol/L (137-145)
[2019-12-23 08:08] LABS: Anion Gap 2 mmol/L
[2019-12-23] MEDS: acetaZOLAMIDE 250 MG TAB PO SCH ×2 (08:09→21:00)
[2019-12-23] MEDS: ASPIRIN 81 MG PO SCH (08:09)
[2019-12-23] MEDS: AZITHROMYCIN 500 MG TAB PO SCH (08:09)
[2019-12-23 08:11] LABS: Carbon Dioxide 49 mmol/L (22-30)
[2019-12-23] MEDS: NITROGLYCERIN OINT 1 INCH/GM PACKET TOPICAL SCH (08:34)
[2019-12-23] MEDS ORDERED: FUROSEMIDE 10 MG/ML 4 ML VIAL IV SCH (09:00)
[2019-12-23] MEDS ORDERED: POTASSIUM CHLORIDE ER 20 MEQ TAB.ER PO STA (09:00)
[2019-12-23] MEDS ORDERED: FUROSEMIDE 40 MG TAB PO ONE (09:15)
--- NOTE | 2019-12-23 11:21 | P.PN ---
Subjective Progress Note Date: 12/23/19 This is a 74-year-old female patient with past medical history of paroxysmal atrial fibrillation, sick sinus syndrome status post permanent pacemaker, hypertension, hypothyroidism. Patient was transferred from [facility] due to shortness of breath. She lives at [facility] and was found to be cyanotic and was brought into the emergency center there on a nonrebreather. Patient denied having any chest pain, difficulty breathing, leg edema, PND, orthopnea upon initial evaluation here. Chest x-ray showed cardiomegaly with bilateral perihilar opacities without any pleural effusion or pneumothorax. EKG was a paced rhythm with underlying sinus mechanism. Patient was started on IV Lasix at home medications including amiodarone, metoprolol and Xarelto. Patient is seen today in follow-up and states that her breathing is better today. Chest x-ray reveals evidence of cardiomegaly, patchy bilateral infiltrates and small bilateral effusions. WBC 7.9, hemoglobin 10.9, sodium 139, potassium 3.9, bicarb 52, creatinine 2.65.Coronavirus PCR not detected. She is currently on antibiotics with ceftriaxone and azithromycin. Lasix is at 40 mg IV every 8 hours. Echocardiogram reveals EF of 60-65%, mild aortic valve sclerosis, mild aortic stenosis, mild mitral regurgitation, mild tricuspid regurgitation, mild pulmonary hypertension 12/22: Patient is seen today in follow-up. Patient has been diuresing well. She is currently on IV Lasix 40 mg daily and will be transitioned to oral Lasix 80 mg twice daily, Aldactone 25 mg daily will be added. Potassium is 3.1 and will be replaced. Sodium 137, chloride 86, CO2 49, BUN 11 creatinine 0.75. Patient states that her breathing continues to improve. Mild lower extremity edema. Physical examination: Gen: This is a morbidly obese 74-year-old female. Patient is resting bed and appears to be comfortable and in no acute distress VS: Afebrile, heart rate 80, blood pressure 105/44, pulse ox 93% on 4 L nasal cannula HEENT: Head is atraumatic, normocephalic. Pupils equal, round. Sclerae is anicteric. NECK: Supple. No JVD. No lymphadenopathy. No thyromegaly. LUNGS: Mild crackles bilateral bases. No intercostal retractions. HEART: Regular rate and rhythm. No murmur. ABDOMEN: Soft. Bowel sounds are present. No masses. No tenderness. EXTREMITIES: 1+ pedal edema. No calf tenderness. NEUROLOGICAL: Patient is awake, alert and oriented x3. Cranial nerves 2 through 12 are grossly intact. Assessment: Acute on chronic diastolic heart failure Acute hypoxic respiratory failure History of pacemaker Paroxysmal atrial fibrillation on Xarelto Hypertension Hyperlipidemia Hypothyroidism History of uterine cancer Morbid obesity Plan: Lasix transitioned to 80 mg oral twice daily Add Aldactone 25 mg daily Replace potassium Continue amiodarone at 200 mg daily and Toprol-XL 50 mg daily Continue Xarelto Further recommendations to follow based upon clinical condition Nurse practitioner note has been reviewed, I agree with documented findings and plan of care. Patient was seen and examined. Objective - Vital Signs Vital signs: Vital Signs Temp 97.5 F L 12/23/19 04:00 Pulse 87 12/23/19 04:00 Resp 18 12/23/19 04:00 BP 132/62 12/23/19 04:00 Pulse Ox 93 L 12/23/19 04:00 Intake & Output 12/22/19 12/23/19 12/23/19 18:59 06:59 18:59 Intake Total 570 Output Total 1800 1675 Balance -1230 -1675 Weight 175 kg Intake: Oral 570 Output: Urine 1800 1675 Other: Voiding Method Indwelling Catheter Indwelling Catheter # Voids 0 # Bowel Movements 0 - Labs CBC & Chem 7: 12/22/19 09:49 12/23/19 06:38 Labs: Abnormal Lab Results - Last 24 Hours (Table) 12/22/19 12/22/19 12/22/19 Range/Units 09:49 09:49 14:52 Hgb 10.9 L (11.4-16.0) gm/dL MCHC 28.5 L (31.0-37.0) g/dL RDW 16.5 H (11.5-15.5) % Lymphocytes # 0.8 L (1.0-4.8) k/uL ABG pH 7.48 H (7.35-7.45) ABG pCO2 74 H* (35-45) mmHg ABG pO2 79 L (83-108) mmHg ABG HCO3 55 H* (21-25) mmol/L ABG Total CO2 57 H (19-24) mmol/L Potassium (3.5-5.1) mmol/L Chloride 84 L (98-107) mmol/L Carbon Dioxide 52 H* (22-30) mmol/L Glucose 167 H (74-99) mg/dL Total Protein 5.8 L (6.3-8.2) g/dL Albumin 3.1 L (3.5-5.0) g/dL 12/23/19 Range/Units 06:38 Hgb (11.4-16.0) gm/dL MCHC (31.0-37.0) g/dL RDW (11.5-15.5) % Lymphocytes # (1.0-4.8) k/uL ABG pH (7.35-7.45) ABG pCO2 (35-45) mmHg ABG pO2 (83-108) mmHg ABG HCO3 (21-25) mmol/L ABG Total CO2 (19-24) mmol/L Potassium 3.1 L (3.5-5.1) mmol/L Chloride 86 L (98-107) mmol/L Carbon Dioxide 49 H* (22-30) mmol/L Glucose 108 H (74-99) mg/dL Total Protein (6.3-8.2) g/dL Albumin (3.5-5.0) g/dL Microbiology - Last 24 Hours (Table) 12/21/19 10:34 Blood Culture - Preliminary Blood No Growth after 24 hours
--- NOTE | 2019-12-23 11:28 | P.PN ---
Subjective Progress Note Date: 12/23/19 Principal diagnosis: Acute exacerbation of suspected systolic congestive heart failure A 74-year-old female patient who was referred to us from [facility] because of worsening shortness of breath. She is a very poor historian. She was transferred to hospital because of worsening shortness of breath which is known to have CHF and she also has a pacemaker as noted on her chest x-ray. She has chronic atrial fibrillation, hypertension, hyperlipidemia and hypothyroidism and the patient has history of uterine cancer along with history of depression. She has been maintained on long-term anticoagulation with Xarelto She has a DNR/DNI status. A covid 19 evaluation has not been done yet.. Currently the patient is on a sinus rhythm with a bundle-branch block pattern on the left. Her oxygenation is adequate at 6 L per minute with a pulse ox of 98%. She was slightly tachypneic at a time of admission and shortness of breath seems to have improved. She was started on examination Rocephin and Zithromax. Covid 19 testing is pending for now. She was also started on Lasix 40 mg IV push every 8 hours. The patient is a very poor historian. She is not aware of her condition and is not also aware of the exact circumstances that led into the hospital. She apparently lives in a facility called [facility]. No fever. No chills. Blood work for that was reviewed. The patient has an elevated BNP above 2500 and the rest of the blood work shows a chronic metabolic alkalosis related to her morbid obesity and possibly a temper sedated effective for chronic hypercapnic respiratory failure. She is not sure if she uses oxygen on a regular basis. She does not utilize any form of CPAP. She is morbidly obese. She is nonambulatory. She is essentially bedridden. She is chronically debilitated. She has a DNR/DNI CODE STATUS. The patient was seen today 12/22/2019 in follow-up on the regular medical floor. She is currently resting in bed. Awake and alert in no acute distress. Maintaining O2 saturation in the 90s on 4 L/m per nasal cannula. She's afebrile. Hemodynamically stable. Chest x-ray reveals evidence of cardiomegaly, patchy bilateral infiltrates, small bilateral effusions. White count 7.9. Hemoglobin 10.9. Sodium 139. Potassium 3.9. Bicarb 52. Creatinine 0.65. Chronic virus not detected. She remains on antibiotics in the form of ceftriaxone and azithromycin. Anticoagulated with Xarelto. Currently on Lasix 40 mg every 8 hours. The patient is seen today 12/23/2019 in follow-up on the regular medical floor. She is currently resting comfortably in bed. Awake and alert in no acute distress. Maintaining O2 saturations in the 90s on 2 L/m per nasal cannula. She's been afebrile. Hemodynamically stable. Blood cultures reveal no growth. Sodium 137. Potassium 3.1. Chloride 86. Bicarb 49. Creatinine 0.75. Arterial blood gases revealed a PaO2 of 79, pCO2 74 and a pH of 7.48 on 36% FiO2. She did receive Diamox last evening and her diuretics were changed to 80 mg twice a day orally. Objective - Vital Signs Vital signs: Vital Signs Temp 98.1 F 12/23/19 08:00 Pulse 60 12/23/19 08:00 Resp 18 12/23/19 08:00 BP 120/58 12/23/19 08:00 Pulse Ox 91 L 12/23/19 08:00 Intake & Output 12/22/19 12/23/19 12/23/19 18:59 06:59 18:59 Intake Total 570 Output Total 1800 1675 Balance -1230 -1675 Weight 175 kg Intake: Oral 570 Output: Urine 1800 1675 Other: Voiding Method Indwelling Catheter Indwelling Catheter Indwelling Catheter # Voids 0 # Bowel Movements 0 - Exam Gen. appearance: A 74-year-old female patient, awake and alert today. She is moving all 4 extremities without any limitation. The patient is morbidly obese. The patient has typical features of obstructive sleep apnea. Head exam was generally normal. There was no scleral icterus or corneal arcus. Mucous membranes were moist. Neck was supple and without jugular venous distension, thyromegaly, or carotid bruits. Carotids were easily palpable bilaterally. There was no adenopathy. The patient has a Mallampati class IV Lungs sounds are diminished and the patient has some crackles in lung bases bilaterally. Heart sounds are regular, positive S1-S2 and there is no significant murmurs appreciated. The patient is a pacemaker over the left anterior chest area. Abdominal exam revealed normal bowel sounds. The abdomen was soft, non-tender, and without masses, organomegaly, or appreciable enlargement of the abdominal aorta. Examination of the extremities revealed easily palpable radial, femoral and pedal pulses. There was no cyanosis, clubbing and there is increased swelling in lower extremities bilaterally. Examination of the skin revealed no evidence of significant rashes, suspicious appearing nevi or other concerning lesions. Neurologically with all 4 extremities and the neurologic exam is nonfocal at this point in time. - Labs CBC & Chem 7: 12/22/19 09:49 12/23/19 06:38 Labs: Abnormal Lab Results - Last 24 Hours (Table) 12/22/19 12/23/19 Range/Units 14:52 06:38 ABG pH 7.48 H (7.35-7.45) ABG pCO2 74 H* (35-45) mmHg ABG pO2 79 L (83-108) mmHg ABG HCO3 55 H* (21-25) mmol/L ABG Total CO2 57 H (19-24) mmol/L Potassium 3.1 L (3.5-5.1) mmol/L Chloride 86 L (98-107) mmol/L Carbon Dioxide 49 H* (22-30) mmol/L Glucose 108 H (74-99) mg/dL Microbiology - Last 24 Hours (Table) 12/21/19 10:34 Blood Culture - Preliminary Blood No Growth after 24 hours Assessment and Plan Assessment: 1 shortness of breath and acute exacerbation of diastolic congestive heart failure. Superimposed pneumonia, Covid 19 infection is ruled out. The patient has typical findings of CHF on chest x-ray in addition to elevated proBNP level increased lower extremity edema. 2 acute hypoxic/hypercapnic respiratory failure currently on 2 L of oxygen by nasal cannula 3 CHF, see above-mentioned discussion 4 history of pacemaker insertion 5 history of proximal atrial fibrillation currently in sinus rhythm 6 the patient's rhythm seems to be regular at the rate of 70, possibly paced for now based on EKG findings which shows interventricular conduction delay/LBBB pattern at the rate of 70. 7 hypertension 8 hyperlipidemia 9 hypothyroidism 10 history of uterine cancer 11 history of depression 12 chronic metabolic alkalosis, Necessity for chronic hypercapnic respiratory failure as the patient is morbidly obese and she has typical features of ZAID/obesity hypoventilation syndrome 13 morbid obesity with a BMI of 63.2 14 poor historian Plan The patient was seen and evaluated by Dr. Buenrostro She is stable from the pulmonary standpoint She did receive Diamox and switched to oral diuretics Discharge planning in place I, the cosigning physician, performed a history & physical examination of the patient. Lungs sounds crackles in the bilateral posterior bases. Maintaining good O2 saturations in the 90s on 2 L/m per nasal cannula. I discussed the assessment and plan of care with my nurse practitioner, Janiya Grimm. I attest to the above note as dictated by her.
[2019-12-23] MEDS: SPIRONOLACTONE 25 MG TAB PO SCH (11:40)
--- NOTE | 2019-12-23 16:26 | P.PN ---
Progress Note - Text Progress Note Date: 12/23/19 Chief Complaint: Decreased saturation History of presenting complaint: This is a 74-year-old patient who follows with Dr. Mayur Pratt. Patient is a resident of [facility]. Chronic stable medical conditions include obesity, atrial fibrillation, permanent pacemaker, some cognitive impairment. Patient is able to answer simple questions not much details. Patient presented to the [facility] where her pulse ox was found to be down to 70% at the rehab center. Patient's proBNP was found to be 2450 and checks x-ray was suggestive of pneumonia and congestive heart failure. Patient was given Lasix and was transferred down here. Patient has a small troponin leak. This unclear if patient has chronic oxygen. Patient is put on nonrebreather there. Patient's primary much bedbound nonambulatory. Admitted with CHF exacerbation and pneumonia. Started on Zithromax, IV ceftriaxone, IV Lasix. Today-propped in bed. Feels well. Minimal shortness of breath. Tolerating a diet. Comfortable. Review of systems: Was done for constitutional, cardiovascular, GI, pulmonary. relevant finding as above Active Medications Acetazolamide (Diamox) 250 mg PO BID [facility] Last Admin: 12/23/19 08:09 Dose: 250 mg Documented by: Albuterol Sulfate (Ventolin Hfa Inhaler) 2 puff INHALATION RT-QID [facility] Last Admin: 12/23/19 15:16 Dose: 2 puff Documented by: Albuterol Sulfate (Ventolin Hfa Inhaler) 2 puff INHALATION RT-Q4H PRN PRN Reason: shortness of breath Amiodarone HCl (Cordarone) 200 mg PO DAILY@0700 [facility] Last Admin: 12/23/19 06:21 Dose: 200 mg Documented by: Aspirin (Aspirin) 81 mg PO DAILY [facility] Last Admin: 12/23/19 08:09 Dose: 81 mg Documented by: Azithromycin (Zithromax) 500 mg PO DAILY [facility] Last Admin: 12/23/19 08:09 Dose: 500 mg Documented by: Furosemide (Lasix) 80 mg PO BID@0900,1600 [facility] Guaifenesin (Robitussin) 200 mg PO Q4H PRN PRN Reason: Cough Ceftriaxone Sodium 1 gm/ (Sodium Chloride) 50 mls @ 100 mls/hr IVPB Q24HR [facility] Stop: 12/25/19 09:01 Last Admin: 12/23/19 08:10 Dose: 100 mls/hr Documented by: Levothyroxine Sodium (Synthroid) 25 mcg PO DAILY@0500 [facility] Last Admin: 12/23/19 06:21 Dose: 25 mcg Documented by: Magnesium Hydroxide (Milk Of Magnesia) 2,400 mg PO DAILY PRN PRN Reason: Constipation Metoprolol Succinate (Toprol Xl) 50 mg PO DAILY@0700 [facility] Last Admin: 12/23/19 06:21 Dose: 50 mg Documented by: Miscellaneous Information (Pneumonia Protocol Utilized) 1 each PO ONCE PRN PRN Reason: Per Protocol Nystatin (Mycostatin Powder) 1 applic TOPICAL Q6H PRN PRN Reason: YEAST Pantoprazole Sodium (Protonix) 40 mg PO DAILY@1900 [facility] Last Admin: 12/22/19 20:41 Dose: 40 mg Documented by: Rivaroxaban (Xarelto) 15 mg PO DAILY@1900 [facility] Last Admin: 12/22/19 20:41 Dose: 15 mg Documented by: Sodium Chloride (Saline Flush) 10 ml IV BID [facility] Last Admin: 12/23/19 08:10 Dose: 10 ml Documented by: Spironolactone (Aldactone) 25 mg PO DAILY [facility] Last Admin: 12/23/19 11:40 Dose: 25 mg Documented by: Trazodone HCl (Desyrel) 100 mg PO HS@2000 [facility] Last Admin: 12/22/19 20:41 Dose: 100 mg Documented by: Physical examination: VITAL SIGNS: 98.1, 60, 18, 120/58, 91% on 2 L GENERAL: Propped up in bed, comfortable EYES: Pupils equal. Conjunctiva normal. HEENT: External appearance of nose and ears normal, oral cavity grossly normal. NECK: JVD unable to assess masses not palpable. HEART: First and second heart sounds are normal; no edema. LUNGS: Respiratory rate increased, diminished breath sounds. ABDOMEN: Soft, nontender, liver spleen not palpable, no masses palpable. PSYCH: Answering simple questions INVESTIGATIONS, reviewed in the clinical context: Potassium 3.1 bicarb 49 creatinine 0.75 Blood or from [facility] shows: EKG-left bundle multiblock personally reviewed by vt -Sodium 148 potassium 4.3 bun 19 creatinine 0.6 white count 8.4 hemoglobin 11.5 is 271 proBNP 2450 troponin I 0.0-6 Chest x-ray shows both pneumonia and CHF COVID-19 PCR-not detected, pro calcitonin 0.06 Assessment: -Probable pneumonia suspect gram-negative organism, POA -Acute congestive heart exacerbation EF not known, POA-improved -Acute hypoxic and hypercapnic respiratory failure, POA-better -Morbid obesity BMI 63.2 -Permanent atrial fibrillation -Permanent pacemaker -CODE STATUS DO NOT RESUSCITATE -Moderate cognitive impairment -Hypothyroid -Chronic medical debility -Essential hypertension -Troponin leak from hemodynamic mismatch. No clinical evidence of acute coronary syndrome -Chronic metabolic alkalosis compensated Plan: -Patient switched over to oral Lasix surgery. Also Aldactone was added. Overall doing better. Repeat labs in the morning. Can be discharged tomorrow.
[2019-12-23] MEDS: RIVAROXABAN 15 MG TAB PO SCH (18:17)
[2019-12-23] MEDS: PANTOPRAZOLE 40 MG TABLET PO SCH (18:17)
[2019-12-23] MEDS: FUROSEMIDE 80 MG TAB PO SCH (18:17)
[2019-12-23] MEDS: traZODone HCL 100 MG TAB PO SCH (21:00)
[2019-12-24 00:45] VITALS: RESP 18
[2019-12-24 05:15] VITALS: PULSE 60
[2019-12-24] MEDS: LEVOTHYROXINE 25 MCG TAB PO SCH (06:25)
[2019-12-24] MEDS: AMIODARONE 200 MG TAB PO SCH (06:25)
[2019-12-24] MEDS: METOPROLOL SUCCINATE (ER) 50 MG TAB.ER.24H PO SCH (06:25)
[2019-12-24 06:27] LABS: Glucose,Whole Blood 109 mg/dL (75-99)
[2019-12-24] MEDS: ALBUTEROL HFA INHALER INHALATION SCH ×2 (07:09→10:39)
[2019-12-24 07:10] LABS: African American GFR (CKD) >90 (>60 ml/min/1.73 sqM); Anion Gap 10 mmol/L; Blood Urea Nitrogen 10 mg/dL (7-17); Calcium 8.4 mg/dL (8.4-10.2); Chloride 91 mmol/L (98-107); Glucose 109 mg/dL (74-99); Non-African American GFR(CKD) 79 (>60 ml/min/1.73 sqM); Potassium 3.4 mmol/L (3.5-5.1); Sodium 141 mmol/L (137-145)
[2019-12-24 07:47] LABS: Carbon Dioxide 40 mmol/L (22-30)
[2019-12-24] MEDS: ASPIRIN 81 MG PO SCH (09:18)
[2019-12-24] MEDS: AZITHROMYCIN 500 MG TAB PO SCH (09:18)
[2019-12-24] MEDS: FUROSEMIDE 80 MG TAB PO SCH (09:18)
[2019-12-24] MEDS: SPIRONOLACTONE 25 MG TAB PO SCH (09:18)
[2019-12-24] MEDS: acetaZOLAMIDE 250 MG TAB PO SCH (09:19)
--- NOTE | 2019-12-24 12:14 | P.DS ---
Providers Date of admission: 12/21/19 09:47 Expected date of discharge: 12/24/19 Attending physician: Ty Gimenez Consults: 12/21/19 09:47 Consult Physician Routine Consulting Provider: Cee Buenrostro Consult Reason/Comments: dyspnea Do you want consulting provider notified?: Yes Consult Physician Routine Consulting Provider: Davey Chaney Consult Reason/Comments: chf, dyspnea Do you want consulting provider notified?: Yes Primary care physician: Mayur Pratt [facility] Course: Chief Complaint: Decreased saturation History of presenting complaint: This is a 74-year-old patient who follows with Dr. Mayur Pratt. Patient is a resident of [facility]. Chronic stable medical conditions include obesity, atrial fibrillation, permanent pacemaker, some cognitive impairment. Patient is able to answer simple questions not much details. Patient presented to the [facility] where her pulse ox was found to be down to 70% at the rehab center. Patient's proBNP was found to be 2450 and checks x-ray was suggestive of pneumonia and congestive heart failure. Patient was given Lasix and was transferred down here. Patient has a small troponin leak. This unclear if patient has chronic oxygen. Patient is put on nonrebreather there. Patient's primary much bedbound nonambulatory. Admitted with CHF exacerbation and pneumonia. Started on Zithromax, IV ceftriaxone, IV Lasix. Today-propped in bed. Doing well. Comfortable. No respiratory symptoms. Consultation: Dr. Buenrostro from pulmonary Dr. Ant Villafuerte from cardiology Physical examination: VITAL SIGNS: 98.2, 60, 18, 109/51, 91% on 2 L GENERAL: Propped up in bed, comfortable EYES: Pupils equal. Conjunctiva normal. HEENT: External appearance of nose and ears normal, oral cavity grossly normal. NECK: JVD unable to assess masses not palpable. HEART: First and second heart sounds are normal; no edema. LUNGS: Respiratory rate increased, diminished breath sounds. ABDOMEN: Soft, nontender, liver spleen not palpable, no masses palpable. PSYCH: Answering simple questions INVESTIGATIONS, reviewed in the clinical context: Potassium 3.4 bicarb 40 creatinine 0.75 Blood or from [facility] shows: EKG-left bundle multiblock personally reviewed by or -Sodium 148 potassium 4.3 bun 19 creatinine 0.6 white count 8.4 hemoglobin 11.5 is 271 proBNP 2450 troponin I 0.0-6 Chest x-ray shows both pneumonia and CHF COVID-19 PCR-not detected, pro calcitonin 0.06 2-D co-EF 60-65%, severe concentric LVH Assessment: -Probable pneumonia suspect gram-negative organism, POA -Acute congestive heart exacerbation EF not known, POA-improved -Acute hypoxic and hypercapnic respiratory failure, POA-better -Morbid obesity BMI 63.2 -Permanent atrial fibrillation -Permanent pacemaker -CODE STATUS DO NOT RESUSCITATE -Moderate cognitive impairment -Hypothyroid -Chronic medical debility -Essential hypertension -Hypertensive heart disease -Troponin leak from hemodynamic mismatch. No clinical evidence of acute coronary syndrome -Chronic metabolic alkalosis compensated Disposition: [facility] Patient Condition at Discharge: Stable Plan - Discharge Summary Discharge Rx Participant: No New Discharge Prescriptions: New Spironolactone [Aldactone] 25 mg PO DAILY tab Aspirin 81 mg PO DAILY chew Cefuroxime Axetil [Ceftin] 500 mg PO BID 3 Days #6 tab Albuterol Inhaler [Ventolin Hfa Inhaler] 2 puff INHALATION RT-Q4H PRN puff PRN Reason: shortness of breath Continue Nystatin 100,000 Unit/gm Powd [Mycostatin Powder] 1 applic TOPICAL Q6H PRN PRN Reason: YEAST Magnesium Hydroxide [Milk of Magnesia] 2,400 mg PO DAILY PRN PRN Reason: Constipation Na Phos,M-B/Na Phos,Di-Ba [Fleet Adult] 133 ml RECTAL Q72H PRN PRN Reason: Constipation Menthol [Nice Cough Drops] 1 lozenge MUCOUS MEM Q4H PRN PRN Reason: Cough guaiFENesin [Diabetic Tussin Ex] 200 mg PO Q4H PRN PRN Reason: Cough Bisacodyl [Dulcolax] 10 mg PO Q72H PRN PRN Reason: Constipation Cholecalciferol [Vitamin D3 (25 Mcg = 1000 Iu)] 1,000 unit PO BID@0700,1900 Acetaminophen [Tylenol] 325 mg PO Q6H PRN MDD 3 GRAMS/24 HOURS PRN Reason: Fever And/ Or Pain Rivaroxaban [Xarelto] 15 mg PO DAILY@1900 traZODone HCL 100 mg PO HS@2000 Sennosides-Docusate Sodium [Senokot-S] 1 tab PO HS@2000 Omeprazole 20 mg PO DAILY@1900 Metoprolol Succinate [Toprol XL] 50 mg PO DAILY@0700 Levothyroxine Sodium [Synthroid] 25 mcg PO DAILY@0500 Potassium Chloride [Klor-Con 10] 20 meq PO DAILY@0700 Fluticasone Nasal [place] [Flonase Nasal [place]] 1 spray EA NOSTRIL DAILY@0700 Rosuvastatin Calcium [Crestor] 5 mg PO DAILY@0700 Amiodarone [Cordarone] 200 mg PO DAILY@0700 Changed Furosemide [Lasix] 40 mg PO BID@0700,1400 #0 Discontinued diphenhydrAMINE [Benadryl] 25 mg PO Q6H PRN PRN Reason: Itching Megestrol [Megace] 40 mg PO BID@0700,1900 Loratadine 10 mg PO DAILY@0700 Discharge Medication List Acetaminophen [Tylenol] 325 mg PO Q6H PRN MDD 3 GRAMS/24 HOURS 12/21/19 [History] Amiodarone [Cordarone] 200 mg PO DAILY@0712/21/19 [History] Bisacodyl [Dulcolax] 10 mg PO Q72H PRN 12/21/19 [History] Cholecalciferol [Vitamin D3 (25 Mcg = 1000 Iu)] 1,000 unit PO BID@0700,19012/21/19 [History] Fluticasone Nasal [place] [Flonase Nasal [place]] 1 spray EA NOSTRIL DAILY@0712/21/19 [History] Levothyroxine Sodium [Synthroid] 25 mcg PO DAILY@0500 12/21/19 [History] Magnesium Hydroxide [Milk of Magnesia] 2,400 mg PO DAILY PRN 12/21/19 [History] Menthol [Nice Cough Drops] 1 lozenge MUCOUS MEM Q4H PRN 12/21/19 [History] Metoprolol Succinate [Toprol XL] 50 mg PO DAILY@0712/21/19 [History] Na Phos,M-B/Na Phos,Di-Ba [Fleet Adult] 133 ml RECTAL Q72H PRN 12/21/19 [History] Nystatin 100,000 Unit/gm Powd [Mycostatin Powder] 1 applic TOPICAL Q6H PRN 12/21/19 [History] Omeprazole 20 mg PO DAILY@1900 15/20 [History] Potassium Chloride [Klor-Con 10] 20 meq PO DAILY@0712/21/19 [History] Rivaroxaban [Xarelto] 15 mg PO DAILY@189912/21/19 [History] Rosuvastatin Calcium [Crestor] 5 mg PO DAILY@0700 12/21/19 [History] Sennosides-Docusate Sodium [Senokot-S] 1 tab PO HS@199912/21/19 [History] guaiFENesin [Diabetic Tussin Ex] 200 mg PO Q4H PRN 12/21/19 [History] traZODone HCL 100 mg PO HS@199912/21/19 [History] Albuterol Inhaler [Ventolin Hfa Inhaler] 2 puff INHALATION RT-Q4H PRN puff 12/24/19 [Rx] Aspirin 81 mg PO DAILY chew 12/24/19 [Rx] Cefuroxime Axetil [Ceftin] 500 mg PO BID 3 Days #6 tab 12/24/19 [Rx] Furosemide [Lasix] 40 mg PO BID@0700,1400 #0 12/24/19 [Rx] Spironolactone [Aldactone] 25 mg PO DAILY tab 12/24/19 [Rx] Follow up Appointment(s)/Referral(s): Mayur Pratt MD [Primary Care Provider] - 1-2 days
--- NOTE | 2019-12-24 13:28 | P.PN ---
Subjective Progress Note Date: 12/24/19 This is a 74-year-old patient with past medical history for paroxysmal atrial fibrillation, sick sinus syndrome with prior pacemaker, hypertension, hypothyroidism, presented to [facility] with symptoms of progressively worsening shortness of breath. She was seen in consultation by Dr. Choudhury over the weekend and transitioned over to oral diuretics from yesterday. Patient feels well this morning and hemodynamically he is stable. Objective - Vital Signs Vital signs: Vital Signs Temp 98.2 F 12/24/19 09:05 Pulse 60 12/24/19 09:05 Resp 18 12/24/19 09:05 BP 109/51 12/24/19 09:05 Pulse Ox 91 L 12/24/19 09:05 Intake & Output 12/23/19 12/24/19 12/24/19 18:59 06:59 18:59 Intake Total 440 966 Output Total 2100 1600 Balance -1660 -1600 966 Weight 173.7 kg Intake: Intake, IV Titration 100 Amount cefTRIAXone 1 gm In 100 Sodium Chloride 0.9% 50 ml @ 100 mls/hr IVPB Q24HR [facility] Rx#:[id number] Oral 440 866 Output: Urine 2100 1600 Other: Voiding Method Indwelling Catheter Indwelling Catheter Indwelling Catheter - Exam Physical examination: Gen: This is a morbidly obese 74-year-old female. Patient is resting bed and appears to be comfortable and in no acute distress VS: Afebrile, heart rate 60, blood pressure 109/51, pulse ox 93% on 4 L nasal cannula HEENT: Head is atraumatic, normocephalic. Pupils equal, round. Sclerae is anicteric. NECK: Supple. No JVD. No lymphadenopathy. No thyromegaly. LUNGS: Mild crackles bilateral bases. No intercostal retractions. HEART: Regular rate and rhythm. No murmur. ABDOMEN: Soft. Bowel sounds are present. No masses. No tenderness. EXTREMITIES: 1+ pedal edema. No calf tenderness. NEUROLOGICAL: Patient is awake, alert and oriented x3. Cranial nerves 2 through 12 are grossly intact. - Labs CBC & Chem 7: 12/22/19 09:49 12/24/19 06:40 Labs: Abnormal Lab Results - Last 24 Hours (Table) 12/24/19 12/24/19 Range/Units 06:25 06:40 Potassium 3.4 L (3.5-5.1) mmol/L Chloride 91 L (98-107) mmol/L Carbon Dioxide 40 H (22-30) mmol/L Glucose 109 H (74-99) mg/dL POC Glucose (mg/dL) 109 H (75-99) mg/dL Microbiology - Last 24 Hours (Table) 12/21/19 10:34 Blood Culture - Preliminary Blood No Growth after 72 hours Assessment and Plan Plan: Assessment and plan: #1 Acute on chronic diastolic heart failure #2 Acute hypoxic respiratory failure #3 History of pacemaker #4 Paroxysmal atrial fibrillation on Xarelto #5 Hypertension #6 Hyperlipidemia #7 Hypothyroidism #8 History of uterine cancer #9 Morbid obesity Plan From cardiology's perspective, patient may be able to be discharged home today. We will make her a follow-up appointment in the office post discharge. DNP note has been reviewed, I agree with a documented findings and plan of care. Patient was seen and examined.
[2019-12-24 13:35] VITALS: BP 126/58; TEMP 97.9
== END 2019-12-24 14:50 | DRG 177 ==
LOC: EC 08:59 → 3SCARD 09:47
PROVIDERS: ADMIT Hospitalist; ATTEND Hospitalist
DX: J15.6 Pneumonia due to other Gram-negative bacteria (principal); I50.33 Acute on chronic diastolic (congestive) heart failure; J96.21 Acute and chronic respiratory failure with hypoxia; J96.22 Acute and chronic respiratory failure with hypercapnia; E66.2 Morbid (severe) obesity with alveolar hypoventilation; E87.3 Alkalosis; I48.21 Permanent atrial fibrillation; Z68.44 Body mass index [BMI] 60.0-69.9, adult; E03.9 Hypothyroidism, unspecified; E78.5 Hyperlipidemia, unspecified; F32.9 Major depressive disorder, single episode, unspecified; I11.0 Hypertensive heart disease with heart failure; I27.20 Pulmonary hypertension, unspecified; Z66 Do not resuscitate; Z74.01 Bed confinement status; Z79.01 Long term (current) use of anticoagulants; Z79.890 Hormone replacement therapy; Z79.899 Other long term (current) drug therapy; Z80.0 Family history of malignant neoplasm of digestive organs; Z85.42 Personal history of malignant neoplasm of other parts of uterus; Z95.0 Presence of cardiac pacemaker; Z20.828 Contact with and (suspected) exposure to other viral communicable diseases; R41.89 Other symptoms and signs involving cognitive functions and awareness; R53.81 Other malaise
CPT/HCPCS: 36415; 36600; 71045; 80048; 80053; 82728; 82805; 83605; 83615; 83735; 83880; 84145; 85025; 86140; 87040; 87635; 93005; 93306; 94640; 94760; 99285

== ENCOUNTER 2020-01-08 01:52 | Inpatient (IN) | payer MEDICARE, OTHER ==
--- NOTE | 2020-01-08 02:41 | ED ---
General Adult HPI - General Chief complaint: Shortness of Breath Stated complaint: SOB Time Seen by Provider: 01/08/20 02:17 Source: patient, EMS Mode of arrival: EMS Limitations: physical limitation - History of Present Illness Initial comments: 's patient is 74-year-old woman who is transferred here from [facility]. The patient's currently had a nursing home facility and had been transferred to the other hospital to have evaluation after she was found to have pulse oximetry readings down to the low 80s. The patient had been on for 5 L of nasal cannula oxygen at the time. Workup at the other hospital found the patient to have congestive heart failure with some pulmonary edema and also possible infiltrate. Patient was given cefepime and vancomycin and transferred here for admission. When I interview the patient, she is without complaints. -: unknown Associated Symptoms: denies other symptoms - Related Data Home Medications Medication Instructions Recorded Confirmed Acetaminophen [Tylenol] 325 mg PO Q6H PRN MDD 3 GRAMS/24 12/21/19 12/21/19 HOURS Amiodarone [Cordarone] 200 mg PO DAILY@0712/21/19 12/21/19 Bisacodyl [Dulcolax] 10 mg PO Q72H PRN 12/21/19 12/21/19 Cholecalciferol [Vitamin D3 (25 1,000 unit PO BID@0700,1900 12/21/19 12/21/19 Mcg = 1000 Iu)] Fluticasone Nasal [place] [Flonase 1 spray EA NOSTRIL DAILY@0712/21/19 12/21/19 Nasal [place]] Levothyroxine Sodium [Synthroid] 25 mcg PO DAILY@0500 12/21/19 12/21/19 Magnesium Hydroxide [Milk of 2,400 mg PO DAILY PRN 12/21/19 12/21/19 Magnesia] Menthol [Nice Cough Drops] 1 lozenge MUCOUS MEM Q4H PRN 12/21/19 12/21/19 Metoprolol Succinate [Toprol XL] 50 mg PO DAILY@0712/21/19 12/21/19 Na Phos,M-B/Na Phos,Di-Ba [Fleet 133 ml RECTAL Q72H PRN 12/21/19 12/21/19 Adult] Nystatin 100,000 Unit/gm Powd 1 applic TOPICAL Q6H PRN 12/21/19 12/21/19 [Mycostatin Powder] Omeprazole 20 mg PO DAILY@189912/21/19 12/21/19 Potassium Chloride [Klor-Con 10] 20 meq PO DAILY@0712/21/19 12/21/19 Rivaroxaban [Xarelto] 15 mg PO DAILY@189912/21/19 12/21/19 Rosuvastatin Calcium [Crestor] 5 mg PO DAILY@0712/21/19 12/21/19 Sennosides-Docusate Sodium 1 tab PO HS@199912/21/19 12/21/19 [Senokot-S] guaiFENesin [Diabetic Tussin Ex] 200 mg PO Q4H PRN 12/21/19 12/21/19 traZODone HCL 100 mg PO HS@199912/21/19 12/21/19 Previous Rx's Medication Instructions Recorded Albuterol Inhaler [Ventolin Hfa 2 puff INHALATION RT-Q4H PRN puff 12/24/19 Inhaler] Aspirin 81 mg PO DAILY chew 12/24/19 Cefuroxime Axetil [Ceftin] 500 mg PO BID 3 Days #6 tab 12/24/19 Furosemide [Lasix] 40 mg PO BID@0700,1400 #0 12/24/19 Spironolactone [Aldactone] 25 mg PO DAILY tab 12/24/19 Allergies Allergy/AdvReac Type Severity Reaction Status Date / Time No Known Allergies Allergy Verified 01/08/20 02:14 Review of Systems ROS Statement: Those systems with pertinent positive or pertinent negative responses have been documented in the HPI. ROS Other: All systems not noted in ROS Statement are negative. Limitations: ROS unobtainable due to patients medical condition Past Medical History Past Medical History: Atrial Fibrillation, Heart Failure, Hyperlipidemia, Hypertension, Osteoarthritis (OA), Thyroid Disorder Additional Past Medical History / Comment(s): uterine CA - declines treatment,malignant neoplasm of endometrium, insomnia, vit D deficiency. History of Any Multi-Drug Resistant Organisms: None Reported Past Surgical History: Unable to Obtain Past Psychological History: Depression Smoking Status: Former smoker Past Alcohol Use History: None Reported Past Drug Use History: None Reported - Past Family History Mother Additional Family Medical History / Comment(s): Mother of colon cancer General Exam Limitations: physical limitation General appearance: alert, in no apparent distress, obese Head exam: Present: atraumatic, normocephalic Eye exam: Present: normal appearance Respiratory exam: Present: rales, rhonchi. Absent: respiratory distress, wheezes, stridor, accessory muscle use, decreased breath sounds, prolonged expiratory Cardiovascular Exam: Present: regular rate, normal rhythm, systolic murmur. Absent: diastolic murmur, rubs, gallop GI/Abdominal exam: Present: soft. Absent: distended, tenderness, guarding, rebound, rigid Extremities exam: Present: normal inspection, normal capillary refill. Absent: calf tenderness Neurological exam: Present: alert. Absent: oriented X3 (Patient is oriented to person and recognizes that she is in the hospital.), motor sensory deficit Skin exam: Present: warm, dry, intact, normal color. Absent: rash Course Vital Signs 01/08/20 01/08/20 01/08/20 02:06 03:09 03:10 Temperature 98.8 F Pulse Rate 78 60 Respiratory 18 20 20 Rate Blood Pressure 113/70 115/66 O2 Sat by Pulse 95 92 L Oximetry 01/08/20 04:00 Temperature Pulse Rate 64 Respiratory 20 Rate Blood Pressure 145/80 O2 Sat by Pulse 91 L Oximetry Medical Decision Making - Medical Decision Making This patient is a 74-year-old woman transferred here from [facility] for CHF exacerbation and possible healthcare associated pneumonia. She did receive dose of cefepime at 11:15 PM and this was followed by vancomycin. Patient respiratory status here seems improved. She is satting well on the nasal cannula breathing comfortably and able to speak in sentences. - Lab Data Lab Results 01/08/20 01/08/20 Range/Units 02:40 03:00 Troponin I 0.025 (0.000-0.034) ng/mL NT-Pro-B Natriuret Pep 4700 pg/mL Disposition Clinical Impression: Congestive heart failure, Pneumonia Disposition: ADMITTED IP TO THIS HOSP Condition: Good Is patient prescribed a controlled substance at d/c from ED?: No Referrals: Mayur Pratt MD [Primary Care Provider] - 1-2 days
[2020-01-08] MEDS ORDERED: LEVOTHYROXINE 25 MCG TAB PO SCH (05:00)
[2020-01-08] MEDS: SODIUM CHLORIDE 0.9% 1,000 ML IV SCH (05:04)
[2020-01-08] MEDS ORDERED: METOPROLOL SUCCINATE (ER) 50 MG TAB.ER.24H PO SCH (07:00)
[2020-01-08] MEDS ORDERED: AMIODARONE 200 MG TAB PO SCH (07:00)
[2020-01-08 08:13] LABS: Basophils % (A) 0 %; Eosinophils # (A) 0.1 k/uL (0-0.7); Eosinophils % (A) 1 %; HCT 37.5 % (34.0-46.0); HGB 11.2 gm/dL (11.4-16.0); Hypochromasia Marked; Lymphocytes # (A) 0.7 k/uL (1.0-4.8); Lymphocytes % (A) 6 %; MCH 27.8 pg (25.0-35.0); MCHC 29.8 g/dL (31.0-37.0); MCV 93.1 fL (80.0-100.0); Mean Platelet Volume 8.2; Monocytes # (A) 1.1 k/uL (0-1.0); Monocytes % (A) 9 %; Neutrophils % (A) 81 %; Platelet Count 213 k/uL (150-450); RBC 4.03 m/uL (3.80-5.40); RDW 15.6 % (11.5-15.5); WBC 12.3 k/uL (3.8-10.6)
[2020-01-08 08:23] LABS: ALT 13 U/L (4-34); AST 19 U/L (14-36); African American GFR (CKD) >90 (>60 ml/min/1.73 sqM); Albumin 3.1 g/dL (3.5-5.0); Alkaline Phosphatase 74 U/L (38-126); Anion Gap 5 mmol/L; Blood Urea Nitrogen 17 mg/dL (7-17); Calcium 8.8 mg/dL (8.4-10.2); Carbon Dioxide 40 mmol/L (22-30); Chloride 90 mmol/L (98-107); Glucose 160 mg/dL (74-99); Non-African American GFR(CKD) >90 (>60 ml/min/1.73 sqM); Potassium 4.5 mmol/L (3.5-5.1); Sodium 135 mmol/L (137-145); Total Bilirubin 1.3 mg/dL (0.2-1.3); Total Protein 6.3 g/dL (6.3-8.2)
[2020-01-08] MEDS ORDERED: NYSTATIN 100,000 UNIT/GM POWD 15 GM TOPICAL PRN (10:36)
[2020-01-08] MEDS ORDERED: BISACODYL 5 MG TABLET.DR PO PRN (10:36)
[2020-01-08] MEDS ORDERED: ACETAMINOPHEN TAB 325 MG TAB PO PRN (10:36)
[2020-01-08] MEDS ORDERED: MAGNESIUM HYDROXIDE 2,400 MG/10 ML CUP PO PRN (10:36)
[2020-01-08] MEDS: ASPIRIN 81 MG PO SCH (11:17)
[2020-01-08] MEDS: SPIRONOLACTONE 25 MG TAB PO SCH (11:17)
[2020-01-08] MEDS: METOPROLOL SUCCINATE (ER) 50 MG TAB.ER.24H PO SCH (11:18)
[2020-01-08] MEDS: MEGESTROL 40 MG TAB PO SCH ×2 (11:18→22:54)
[2020-01-08] MEDS: AMIODARONE 200 MG TAB PO SCH (11:18)
[2020-01-08] MEDS: LEVOTHYROXINE 25 MCG TAB PO SCH (11:18)
--- NOTE | 2020-01-08 12:14 | XR ---
EXAMINATION TYPE: XR chest 1V DATE OF EXAM: 01/08/2020 COMPARISON: 12/22/2019 INDICATION: Pneumonia TECHNIQUE: Single frontal view of the chest is obtained. FINDINGS: The heart size is enlarged. The pulmonary vasculature is normal. Mild left lower lobe infiltrate is present. There is visualization the left diaphragm, and improvemen t from prior study. Mild infiltrate is scattered in the right perihilar region. IMPRESSION: 1. Improving left lower lobe infiltrate with some mild residual remaining at the right perihilar julio on as well. Continued follow-up is recommended.
[2020-01-08] MEDS ORDERED: FUROSEMIDE 20 MG TAB PO SCH (14:00)
[2020-01-08 16:02] VITALS: BMI 58.2
--- NOTE | 2020-01-08 20:18 | P.HPIM ---
History of Present Illness H&P Date: 01/08/20 Chief Complaint: Degrees pulse ox History of presenting complaint: This is a 74-year-old patient who follows with Dr. Mayur Pratt. Patient is a resident of [facility]. Chronic stable medical conditions include obesity, atrial fibrillation, permanent pacemaker, some cognitive impairment. Patient is able to answer simple questions not much details. Patient admitted baseline is bed bound and nonambulatory. Patient presented to the [facility] where her pulse ox was in the low 80s. . At [facility] patient is felt to have some pulmonary edema and possible infiltrates. Patient started on IV cefepime and vancomycin and transferred down here. According to patient herself she stays she denies any shortness of breath some baseline cough no fever no chills. Appetite is good. She does not know why she is here and somewhat irritated about the same. Review of systems: GEN.: Tired EYES: None HEENT: None NECK: None RESPIRATORY: As above CARDIOVASCULAR: None GASTROINTESTINAL: None GENITOURINARY: None MUSCULOSKELETAL: Some joint pains LYMPHATICS: None HEMATOLOGICAL: None PSYCHIATRY: Forgetful NEUROLOGICAL: None Past medical history to include: Persistent atrial fibrillation, congestive heart failure, hyperlipidemia, hypert ension, hypothyroid, uterine cancer patient declined treatment, depression, morbid obesity Social history: Currently resident at [facility], no smoking or alcohol. Physical examination: VITAL SIGNS: 98.8, 78, 18, 113/70, 95% on 4 L GENERAL: BMI 58.2, propped up in bed, not in distress EYES: Pupils equal. Conjunctiva normal. HEENT: External appearance of nose and ears normal, oral cavity grossly normal. NECK: JVD unable to assess masses not palpable. HEART: First and second heart sounds are normal; no edema. LUNGS: Respiratory rate increased, diminished breath sounds. ABDOMEN: Soft, nontender, liver spleen not palpable, no masses palpable. PSYCH: Patient is able to answer simple questions. NEUROLOGICAL: Cranial nerves grossly intact; no facial asymmetry, power and sensation grossly intact. LYMPHATICS: No lymph nodes palpable in the axilla and neck INVESTIGATIONS, reviewed in the clinical context: White count 12.3 hemoglobin 11.2 platelets 213 potassium 4.5 creatinine 0.54 Troponin I 0.016, 0.012, proBNP 4700, pro calcitonin 0.22 Assessment: -Possible pneumonia, suspect gram-negative organism, POA -Acute on chronic congestive heart exacerbation EF 60-65%, POA -Acute hypoxic and hypercapnic respiratory failure, POA-better -Morbid obesity BMI 63.2 -Permanent atrial fibrillation -Permanent pacemaker -CODE STATUS DO NOT RESUSCITATE -Moderate cognitive impairment -Hypothyroid -Chronic medical debility -Essential hypertension -Hypertensive heart disease -Chronic metabolic alkalosis compensated Plan: -We will continue. Patient on IV ceftriaxone. DC vancomycin. Home medications resumed. Lovenox for DVT prophylaxis. Start the patient on IV Lasix. Follow lites closely. Discussed with the patient. Past Medical History Past Medical History: Atrial Fibrillation, Heart Failure, Hyperlipidemia, Hype rtension, Osteoarthritis (OA), Thyroid Disorder Additional Past Medical History / Comment(s): uterine CA - declines treatment,malignant neoplasm of endometrium, insomnia, vit D deficiency. History of Any Multi-Drug Resistant Organisms: None Reported Past Surgical History: Unable to Obtain Past Anesthesia/Blood Transfusion Reactions: No Reported Reaction Past Psychological History: Depression Smoking Status: Former smoker Past Alcohol Use History: None Reported Past Drug Use History: None Reported - Past Family History Mother Additional Family Medical History / Comment(s): Mother of colon cancer Medications and Allergies Home Medications Medication Instructions Recorded Confirmed Type Acetaminophen [Tylenol] 325 mg PO Q6H PRN MDD 3 GRAMS/24 12/21/19 01/08/20 History HOURS Amiodarone [Cordarone] 200 mg PO DAILY@0700 12/21/19 01/08/20 History Bisacodyl [Dulcolax] 10 mg PO Q72H PRN 12/21/19 01/08/20 History Cholecalciferol [Vitamin D3 (25 1,000 unit PO BID@0700,1900 12/21/19 01/08/20 History Mcg = 1000 Iu)] Fluticasone Nasal [place] [Flonase 1 spray EA NOSTRIL DAILY@0712/21/19 01/08/20 History Nasal [place]] Levothyroxine Sodium [Synthroid] 25 mcg PO DAILY@0500 12/21/19 01/08/20 History Magnesium Hydroxide [Milk of 2,400 mg PO DAILY PRN 12/21/19 01/08/20 History Magnesia] Metoprolol Succinate [Toprol XL] 50 mg PO DAILY@0712/21/19 01/08/20 History Nystatin 100,000 Unit/gm Powd 1 applic TOPICAL Q6H PRN 12/21/19 01/08/20 History [Mycostatin Powder] Omeprazole 20 mg PO DAILY@189912/21/19 01/08/20 History Potassium Chloride [Klor-Con 10] 20 meq PO DAILY@0712/21/19 01/08/20 History Rivaroxaban [Xarelto] 15 mg PO DAILY@189912/21/19 01/08/20 History Rosuvastatin Calcium [Crestor] 5 mg PO DAILY@69912/21/19 01/08/20 History Sennosides-Docusate Sodium 1 tab PO HS@199912/21/19 01/08/20 History [Senokot-S] traZODone HCL 100 mg PO HS@199912/21/19 01/08/20 History Aspirin 81 mg PO DAILY chew 12/24/19 01/08/20 Rx Spironolactone [Aldactone] 25 mg PO DAILY tab 12/24/19 01/08/20 Rx Albuterol Inhaler [Ventolin Hfa 1 puff INHALATION RT-QID PRN 01/08/20 01/08/20 History Inhaler] Furosemide [Lasix] 20 mg PO BID@0700,1400 01/08/20 01/08/20 History Megestrol [Megace] 40 mg PO BID 01/08/20 01/08/20 History Rosuvastatin Calcium [Crestor] 5 mg PO DAILY 01/08/20 01/08/20 History Allergies Allergy/AdvReac Type Severity Reaction Status Date / Time No Known Allergies Allergy Verified 01/08/20 08:13 Physical Exam Vitals: Vital Signs Temp Pulse Pulse Resp BP BP Pulse Ox 01/08/20 07:40 98.4 F 63 18 124/53 92 L 01/08/20 05:24 99.0 F 22 121/74 93 L 01/08/20 04:49 63 18 113/90 96 01/08/20 04:00 64 20 145/80 91 L 01/08/20 03:10 20 01/08/20 03:09 60 20 115/66 92 L 01/08/20 02:06 98.8 F 78 18 113/70 95 Intake and Output 01/07/20 01/08/20 01/08/20 22:59 06:59 14:59 Other: Weight 158.757 kg Results CBC & Chem 7: 01/08/20 07:14 01/08/20 07:14 Labs: Abnormal Lab Results - Last 24 Hours (Table) 01/08/20 01/08/20 Range/Units 07:14 07:14 WBC 12.3 H (3.8-10.6) k/uL Hgb 11.2 L (11.4-16.0) gm/dL MCHC 29.8 L (31.0-37.0) g/dL RDW 15.6 H (11.5-15.5) % Neutrophils # 10.0 H (1.3-7.7) k/uL Lymphocytes # 0.7 L (1.0-4.8) k/uL Monocytes # 1.1 H (0-1.0) k/uL Sodium 135 L (137-145) mmol/L Chloride 90 L (98-107) mmol/L Carbon Dioxide 40 H (22-30) mmol/L Glucose 160 H (74-99) mg/dL Albumin 3.1 L (3.5-5.0) g/dL Thrombosis Risk Factor Assmnt - Choose All That Apply Each Factor Represents 1 point: Abnormal pulmonary function (COPD), History of prior major surgery (<1month), Obesity (BMI >25), Swollen legs (current), Varicose veins Other Risk Factors: No Each Risk Factor Represents 2 Points: Age 61-74 years Other congenital or acquired thrombophilia - If yes, enter type in comment: No Thrombosis Risk Factor Assessment Total Risk Factor Score: 7 Thrombosis Risk Factor Assessment Level: High Risk
[2020-01-08] MEDS: SENNOSIDES-DOCUSATE SODIUM 1 EACH TAB PO SCH (22:53)
[2020-01-08] MEDS: traZODone HCL 100 MG TAB PO SCH (22:53)
[2020-01-08] MEDS: RIVAROXABAN 15 MG TAB PO SCH (22:54)
[2020-01-08] MEDS: PANTOPRAZOLE 40 MG TABLET PO SCH (22:54)
[2020-01-08] MEDS: FUROSEMIDE 10 MG/ML 4 ML VIAL IV SCH (23:07)
[2020-01-09] MEDS: LEVOTHYROXINE 25 MCG TAB PO SCH (05:02)
[2020-01-09] MEDS: FUROSEMIDE 10 MG/ML 4 ML VIAL IV SCH ×3 (05:03→20:18)
[2020-01-09] MEDS: SODIUM CHLORIDE 0.9% 1,000 ML IV SCH (07:16)
[2020-01-09] MEDS: ATORVASTATIN 10 MG TAB PO SCH (07:32)
[2020-01-09] MEDS: POTASSIUM CHLORIDE ER 20 MEQ TAB.ER PO SCH (07:32)
[2020-01-09] MEDS: FLUTICASONE 50MCG/SPRAY NASAL 16GM EA NOSTRIL SCH (07:32)
[2020-01-09] MEDS: ASPIRIN 81 MG PO SCH (07:32)
[2020-01-09] MEDS: SPIRONOLACTONE 25 MG TAB PO SCH (07:32)
[2020-01-09] MEDS: MEGESTROL 40 MG TAB PO SCH ×2 (07:32→20:18)
[2020-01-09] MEDS: METOPROLOL SUCCINATE (ER) 50 MG TAB.ER.24H PO SCH (07:32)
[2020-01-09] MEDS: AMIODARONE 200 MG TAB PO SCH (07:33)
[2020-01-09 08:06] LABS: African American GFR (CKD) >90 (>60 ml/min/1.73 sqM); Anion Gap 8 mmol/L; Blood Urea Nitrogen 17 mg/dL (7-17); Calcium 8.8 mg/dL (8.4-10.2); Carbon Dioxide 40 mmol/L (22-30); Chloride 89 mmol/L (98-107); Glucose 156 mg/dL (74-99); Non-African American GFR(CKD) 89 (>60 ml/min/1.73 sqM); Potassium 4.1 mmol/L (3.5-5.1); Sodium 137 mmol/L (137-145)
[2020-01-09] MEDS ORDERED: NON FORMULARY DRUG (Rosuvastatin Calcium [Crestor] 5 MG) PO SCH (09:00)
--- NOTE | 2020-01-09 10:15 | CDI ---
Documentation Clarification Form Date: 01/09/2020 10:01:41 AM From: Ana Frey RN CCDS Admit Date: 01/08/2020 04:31:00 AM Patient Name: Maribel Hopkins Visit Number: [id number] Discharge Date: ATTENTION: The Clinical Documentation Specialists (CDI) and [facility] Coding Staff appreciate your assistance in clarifying documentation. Please respond to the clarification below the line at the bottom and electronically sign. The CDI & [facility] Coding staff will review the response and follow-up if needed. Please note: Queries are made part of the Legal Health Record. If you have any questions, please contact the author of this message via ITS. Dr. Ty Gimenez Acute on chronic congestive heart exacerbation EF 60-65% is documented in H&P 01/07 History/Risk Factors: 74-year-old male presents to the ED as a transfer from [facility] for low pulse ox readings on 5L of nasal cannula. Medical History Atrial Fibrillation, CHF, HLD, and HTN Clinical Indicators: 01/07 VS/Pulse OX: 113/70 78 98.8 18 95% 4L nasal cannula 01/07 BNP: 4700 12/22/19 Echocardiogram Results: Severe concentric left ventricular hypertrophy. Overall left ventricular systolic function is normal with, an EF between 60-65%. The right ventricle is mildly enlarged. Left atrium is mildly dilated. 01/07 Chest X Ray: Improving left lower lobe infiltrate Treatment: 01/07 Lasix Iv Q 8 Hrs; Toprol Xl PO Daily, Aldactone PO Daily In your professional opinion, can you please clarify the type of CHF if known? Acute on Chronic Diastolic Heart Failure Unable to Determine Other, please specify (Last Revision: November 2017) Acute on chronic congestive heart failure from diastolic dysfunction EF 60-65 % MTDD
--- NOTE | 2020-01-09 19:59 | P.PN ---
Progress Note - Text Progress Note Date: 01/09/20 Chief Complaint: Degrees pulse ox History of presenting complaint: This is a 74-year-old patient who follows with Dr. Mayur Pratt. Patient is a resident of [facility]. Chronic stable medical conditions include obesity, atrial fibrillation, permanent pacemaker, some cognitive impairment. Patient is able to answer simple questions not much details. Patient admitted baseline is bed bound and nonambulatory. Patient presented to the [facility] where her pulse ox was in the low 80s. . At [facility] patient is felt to have some pulmonary edema and possible infiltrates. Patient started on IV cefepime and vancomycin and transferred down here. According to patient herself she stays she denies any shortness of breath some baseline cough no fever no chills. Appetite is good. She does not know why she is here and somewhat irritated about the same. Admitted with pneumonia and CHF exacerbation. Starting IV Lasix. IV ceftriaxone. Today-. He is better. Oral intake improving eating anywhere from 25-50%. Slight cough. Review of systems: Was done for constitutional, cardiovascular, GI, pulmonary. relevant finding as above Active Medications Acetaminophen (Tylenol Tab) 325 mg PO Q6H PRN PRN Reason: Fever and/ or Mild Pain Amiodarone HCl (Cordarone) 200 mg PO DAILY@0700 [facility] Last Admin: 01/09/20 07:33 Dose: 200 mg Documented by: Aspirin (Aspirin) [address] [facility] Last Admin: 01/09/20 07:32 Dose: 81 mg Documented by: Atorvastatin Calcium (Lipitor) 10 mg PO DAILY@0700 [facility] Last Admin: 01/09/20 07:32 Dose: 10 mg Documented by: Bisacodyl (Dulcolax) 10 mg PO Q72H PRN PRN Reason: Constipation Fluticasone Propionate (Flonase Nasal [place]) 1 spray EA NOSTRIL DAILY@0700 [facility] Last Admin: 01/09/20 07:32 Dose: 1 spray Documented by: Furosemide (Lasix) [address] [facility] Last Admin: 01/09/20 12:48 Dose: 40 mg Documented by: Sodium Chloride (Saline 0.9%) 1,000 mls @ 20 mls/hr IV .Q24H [facility] Last Admin: 01/09/20 07:16 Dose: Not Given Documented by: Ceftriaxone Sodium 1 gm/ (Sodium Chloride) 50 mls @ 100 mls/hr IVPB Q24HR [facility] Last Admin: 01/09/20 07:33 Dose: 100 mls/hr Documented by: Levothyroxine Sodium (Synthroid) 25 mcg PO DAILY@0500 [facility] Last Admin: 01/09/20 05:02 Dose: 25 mcg Documented by: Magnesium Hydroxide (Milk Of Magnesia) 2,400 mg PO DAILY PRN PRN Reason: Constipation Megestrol Acetate (Megace) [address] [facility] Last Admin: 01/09/20 07:32 Dose: 40 mg Documented by: Metoprolol Succinate (Toprol Xl) 50 mg PO DAILY@0700 [facility] Last Admin: 01/09/20 07:32 Dose: 50 mg Documented by: Nystatin (Mycostatin Powder) 1 applic TOPICAL Q6H PRN PRN Reason: YEAST Pantoprazole Sodium (Protonix) 40 mg PO DAILY@1900 [facility] Last Admin: 01/08/20 22:54 Dose: 40 mg Documented by: Potassium Chloride (K-Dur 20) 20 meq PO DAILY@0700 [facility] Last Admin: 01/09/20 07:32 Dose: 20 meq Documented by: Rivaroxaban (Xarelto) 15 mg PO DAILY@1900 [facility] Last Admin: 01/08/20 22:54 Dose: 15 mg Documented by: Senna/Docusate Sodium (Senokot-S) 1 each PO HS@1999 [facility] Last Admin: 01/08/20 22:53 Dose: 1 each Documented by: Spironolactone (Aldactone) [address] [facility] Last Admin: 01/09/20 07:32 Dose: 25 mg Documented by: Trazodone HCl (Desyrel) 100 mg PO HS@1999 [facility] Last Admin: 01/08/20 22:53 Dose: 100 mg Documented by: Physical examination: VITAL SIGNS: 99, 60, 18, 110/60, 93% on 3 L GENERAL: BMI 58.2, propped up in bed, not in distress EYES: Pupils equal. Conjunctiva normal. HEENT: External appearance of nose and ears normal, oral cavity grossly normal. NECK: JVD unable to assess masses not palpable. HEART: First and second heart sounds are normal; no edema. LUNGS: Respiratory rate increased, diminished breath sounds. ABDOMEN: Soft, nontender, liver spleen not palpable, no masses palpable. PSYCH: Patient is able to answer simple questions. INVESTIGATIONS, reviewed in the clinical context: Potassium 4.1 creatinine 0.64 proBNP 5020 Previous testing White count 12.3 hemoglobin 11.2 platelets 213 potassium 4.5 creatinine 0.54 Troponin I 0.016, 0.012, proBNP 4700, pro calcitonin 0.22 Assessment: -Possible pneumonia, suspect gram-negative organism, POA -Acute on chronic congestive heart exacerbation EF 60-65%, POA -Acute hypoxic and hypercapnic respiratory failure, POA-better -Morbid obesity BMI 63.2 -Permanent atrial fibrillation -Permanent pacemaker -CODE STATUS DO NOT RESUSCITATE -Moderate cognitive impairment -Hypothyroid -Chronic medical debility -Essential hypertension -Hypertensive heart disease -Chronic metabolic alkalosis compensated Plan: -on IV ceftriaxone., IV Lasix. Repeat electrolytes pro calcitonin the morning. Improving slowly.
[2020-01-09] MEDS: PANTOPRAZOLE 40 MG TABLET PO SCH (20:18)
[2020-01-09] MEDS: RIVAROXABAN 15 MG TAB PO SCH (20:18)
[2020-01-09] MEDS: traZODone HCL 100 MG TAB PO SCH (20:18)
[2020-01-09] MEDS: SENNOSIDES-DOCUSATE SODIUM 1 EACH TAB PO SCH (20:18)
[2020-01-10] MEDS: SODIUM CHLORIDE 0.9% 1,000 ML IV SCH (02:55)
[2020-01-10] MEDS: LEVOTHYROXINE 25 MCG TAB PO SCH (05:40)
[2020-01-10] MEDS: FUROSEMIDE 10 MG/ML 4 ML VIAL IV SCH (05:40)
[2020-01-10 08:14] LABS: HCT 36.8 % (34.0-46.0); HGB 10.9 gm/dL (11.4-16.0); Hypochromasia Marked; MCH 26.9 pg (25.0-35.0); MCHC 29.6 g/dL (31.0-37.0); MCV 91.1 fL (80.0-100.0); Mean Platelet Volume 7.8; Platelet Count 294 k/uL (150-450); RBC 4.03 m/uL (3.80-5.40); RDW 15.9 % (11.5-15.5); WBC 6.2 k/uL (3.8-10.6)
[2020-01-10] MEDS: AMIODARONE 200 MG TAB PO SCH (08:20)
[2020-01-10] MEDS: METOPROLOL SUCCINATE (ER) 50 MG TAB.ER.24H PO SCH (08:21)
[2020-01-10] MEDS: ATORVASTATIN 10 MG TAB PO SCH (08:21)
[2020-01-10] MEDS: POTASSIUM CHLORIDE ER 20 MEQ TAB.ER PO SCH (08:22)
[2020-01-10] MEDS: MEGESTROL 40 MG TAB PO SCH ×2 (08:22→20:16)
[2020-01-10] MEDS: ASPIRIN 81 MG PO SCH (08:22)
[2020-01-10] MEDS: SPIRONOLACTONE 25 MG TAB PO SCH (08:22)
[2020-01-10] MEDS: FLUTICASONE 50MCG/SPRAY NASAL 16GM EA NOSTRIL SCH (08:22)
[2020-01-10 08:49] LABS: African American GFR (CKD) >90 (>60 ml/min/1.73 sqM); Blood Urea Nitrogen 18 mg/dL (7-17); Calcium 8.6 mg/dL (8.4-10.2); Chloride 86 mmol/L (98-107); Glucose 155 mg/dL (74-99); Non-African American GFR(CKD) >90 (>60 ml/min/1.73 sqM); Potassium 3.8 mmol/L (3.5-5.1); Sodium 139 mmol/L (137-145)
[2020-01-10 08:56] LABS: Anion Gap 5 mmol/L
[2020-01-10 09:16] LABS: Carbon Dioxide 48 mmol/L (22-30)
[2020-01-10] MEDS: SENNOSIDES-DOCUSATE SODIUM 1 EACH TAB PO SCH (20:16)
[2020-01-10] MEDS: traZODone HCL 100 MG TAB PO SCH (20:16)
[2020-01-10] MEDS: PANTOPRAZOLE 40 MG TABLET PO SCH (20:16)
[2020-01-10] MEDS: RIVAROXABAN 15 MG TAB PO SCH (20:16)
--- NOTE | 2020-01-10 20:33 | P.PN ---
Progress Note - Text Progress Note Date: 01/10/20 Chief Complaint: Degrees pulse ox History of presenting complaint: This is a 74-year-old patient who follows with Dr. Mayur Pratt. Patient is a resident of [facility]. Chronic stable medical conditions include obesity, atrial fibrillation, permanent pacemaker, some cognitive impairment. Patient is able to answer simple questions not much details. Patient admitted baseline is bed bound and nonambulatory. Patient presented to the [facility] where her pulse ox was in the low 80s. . At [facility] patient is felt to have some pulmonary edema and possible infiltrates. Patient started on IV cefepime and vancomycin and transferred down here. According to patient herself she stays she denies any shortness of breath some baseline cough no fever no chills. Appetite is good. She does not know why she is here and somewhat irritated about the same. Admitted with pneumonia and CHF exacerbation. Starting IV Lasix. IV ceftriaxone. Today-. Breathing better. Eating better. Some cough present. Review of systems: Was done for constitutional, cardiovascular, GI, pulmonary. relevant finding as above Active Medications Acetaminophen (Tylenol Tab) 325 mg PO Q6H PRN PRN Reason: Fever and/ or Mild Pain Amiodarone HCl (Cordarone) 200 mg PO DAILY@0700 [facility] Last Admin: 01/10/20 08:20 Dose: 200 mg Documented by: Aspirin (Aspirin) 81 mg PO DAILY [facility] Last Admin: 01/10/20 08:22 Dose: 81 mg Documented by: Atorvastatin Calcium (Lipitor) 10 mg PO DAILY@0700 [facility] Last Admin: 01/10/20 08:21 Dose: 10 mg Documented by: Bisacodyl (Dulcolax) 10 mg PO Q72H PRN PRN Reason: Constipation Fluticasone Propionate (Flonase Nasal [place]) 1 spray EA NOSTRIL DAILY@0700 [facility] Last Admin: 01/10/20 08:22 Dose: 1 spray Documented by: Furosemide (Lasix) 40 mg PO DAILY [facility] Sodium Chloride (Saline 0.9%) 1,000 mls @ 20 mls/hr IV .Q24H [facility] Last Admin: 01/10/20 02:55 Dose: Not Given Documented by: Ceftriaxone Sodium 1 gm/ (Sodium Chloride) 50 mls @ 100 mls/hr IVPB Q24HR [facility] Last Admin: 01/10/20 08:19 Dose: 100 mls/hr Documented by: Levothyroxine Sodium (Synthroid) 25 mcg PO DAILY@0500 [facility] Last Admin: 01/10/20 05:40 Dose: 25 mcg Documented by: Magnesium Hydroxide (Milk Of Magnesia) 2,400 mg PO DAILY PRN PRN Reason: Constipation Megestrol Acetate (Megace) 40 mg PO BID [facility] Last Admin: 01/10/20 20:16 Dose: 40 mg Documented by: Metoprolol Succinate (Toprol Xl) 50 mg PO DAILY@0700 [facility] Last Admin: 01/10/20 08:21 Dose: 50 mg Documented by: Nystatin (Mycostatin Powder) 1 applic TOPICAL Q6H PRN PRN Reason: YEAST Pantoprazole Sodium (Protonix) 40 mg PO DAILY@190 [facility] Last Admin: 01/10/20 20:16 Dose: 40 mg Documented by: Potassium Chloride (K-Dur 20) 20 meq PO DAILY@0700 [facility] Last Admin: 01/10/20 08:22 Dose: 20 meq Documented by: Rivaroxaban (Xarelto) 15 mg PO DAILY@190 [facility] Last Admin: 01/10/20 20:16 Dose: 15 mg Documented by: Senna/Docusate Sodium (Senokot-S) 1 each PO HS@1999 [facility] Last Admin: 01/10/20 20:16 Dose: 1 each Documented by: Spironolactone (Aldactone) 25 mg PO DAILY [facility] Last Admin: 01/10/20 08:22 Dose: 25 mg Documented by: Trazodone HCl (Desyrel) 100 mg PO HS@1999 [facility] Last Admin: 01/10/20 20:16 Dose: 100 mg Documented by: Physical examination: VITAL SIGNS: 98.1, 70, 16, 106/65, 93% on 3 L GENERAL: Propped up in bed, awake, breathing better EYES: Pupils equal. Conjunctiva normal. HEENT: External appearance of nose and ears normal, oral cavity grossly normal. NECK: JVD unable to assess masses not palpable. HEART: First and second heart sounds are normal; no edema. LUNGS: Respiratory rate increased, diminished breath sounds. ABDOMEN: Soft, nontender, liver spleen not palpable, no masses palpable. PSYCH: Patient is able to answer simple questions. INVESTIGATIONS, reviewed in the clinical context: White count 6.2 hemoglobin 10.9 potassium 3.8 bicarb 48 creatinine 0.6 proBNP 3620 Previous testing White count 12.3 hemoglobin 11.2 platelets 213 potassium 4.5 creatinine 0.54 Troponin I 0.016, 0.012, proBNP 4700, pro calcitonin 0.22 Assessment: -Possible pneumonia, suspect gram-negative organism, POA -Acute on chronic congestive heart exacerbation EF 60-65%, POA-improving -Acute hypoxic and hypercapnic respiratory failure, POA-better -Morbid obesity BMI 63.2 -Permanent atrial fibrillation -Permanent pacemaker -CODE STATUS DO NOT RESUSCITATE -Moderate cognitive impairment -Hypothyroid -Chronic medical debility -Essential hypertension -Hypertensive heart disease -Chronic metabolic alkalosis compensated Plan: -on IV ceftriaxone., DC IV Lasix today. Switch to by mouth Lasix. Another 24 hours of IV antibiotics. That hopefully discharge tomorrow. Discussed with the patient.
[2020-01-11] MEDS: SODIUM CHLORIDE 0.9% 1,000 ML IV SCH (03:17)
[2020-01-11] MEDS: LEVOTHYROXINE 25 MCG TAB PO SCH (05:37)
[2020-01-11 07:38] VITALS: PULSE 70
[2020-01-11 08:17] LABS: African American GFR (CKD) >90 (>60 ml/min/1.73 sqM); Blood Urea Nitrogen 16 mg/dL (7-17); Calcium 8.9 mg/dL (8.4-10.2); Chloride 84 mmol/L (98-107); Glucose 150 mg/dL (74-99); Non-African American GFR(CKD) >90 (>60 ml/min/1.73 sqM); Potassium 4.1 mmol/L (3.5-5.1); Sodium 137 mmol/L (137-145)
[2020-01-11 08:25] LABS: Anion Gap 5 mmol/L
[2020-01-11 08:33] LABS: Carbon Dioxide 48 mmol/L (22-30)
[2020-01-11] MEDS ORDERED: FUROSEMIDE 40 MG TAB PO SCH (09:00)
[2020-01-11] MEDS: METOPROLOL SUCCINATE (ER) 50 MG TAB.ER.24H PO SCH (09:49)
[2020-01-11] MEDS: ATORVASTATIN 10 MG TAB PO SCH (09:49)
[2020-01-11] MEDS: AMIODARONE 200 MG TAB PO SCH (09:49)
[2020-01-11] MEDS: MEGESTROL 40 MG TAB PO SCH (09:50)
[2020-01-11] MEDS: ASPIRIN 81 MG PO SCH (09:50)
[2020-01-11] MEDS: SPIRONOLACTONE 25 MG TAB PO SCH (09:50)
[2020-01-11] MEDS: POTASSIUM CHLORIDE ER 20 MEQ TAB.ER PO SCH (09:50)
[2020-01-11] MEDS: FLUTICASONE 50MCG/SPRAY NASAL 16GM EA NOSTRIL SCH (10:08)
--- NOTE | 2020-01-11 14:07 | P.DS ---
Providers Date of admission: 01/08/20 04:31 Expected date of discharge: 01/11/20 Attending physician: Ty Gimenez Primary care physician: Mayur Pratt [facility] Hospital Course: Chief Complaint: Degrees pulse ox History of presenting complaint: This is a 74-year-old patient who follows with Dr. Mayur Pratt. Patient is a resident of [facility]. Chronic stable medical conditions include obesity, atrial fibrillation, permanent pacemaker, some cognitive impairment. Patient is able to answer simple questions not much details. Patient admitted baseline is bed bound and nonambulatory. Patient presented to the [facility] where her pulse ox was in the low 80s. . At [facility] patient is felt to have some pulmonary edema and possible infiltrates. Patient started on IV cefepime and vancomycin and transferred down here. According to patient herself she stays she denies any shortness of breath some baseline cough no fever no chills. Appetite is good. She does not know why she is here and somewhat irritated about the same. Admitted with pneumonia and CHF exacerbation. Starting IV Lasix. IV ceftriaxone. Responded well. Breathing much improved. Today-. Eating well. Excited to go back to her place. Slight cough. Physical examination: VITAL SIGNS: 98.4, 70, 16, 106/68, 93% on oxygen GENERAL: Propped up in bed, comfortable EYES: Pupils equal. Conjunctiva normal. HEENT: External appearance of nose and ears normal, oral cavity grossly normal. NECK: JVD unable to assess masses not palpable. HEART: First and second heart sounds are normal; no edema. LUNGS: Respiratory rate increased, diminished breath sounds. ABDOMEN: Soft, nontender, liver spleen not palpable, no masses palpable. PSYCH: Patient is able to answer simple questions. INVESTIGATIONS, reviewed in the clinical context: White count 6.2 hemoglobin 10.9 potassium 4.1 bicarb 48 creatinine 0.58 Previous testing White count 12.3 hemoglobin 11.2 platelets 213 potassium 4.5 creatinine 0.54 Troponin I 0.016, 0.012, proBNP 4700, pro calcitonin 0.22 Assessment: -Possible pneumonia, suspect gram-negative organism, POA -Acute on chronic congestive heart exacerbation EF 60-65%, POA- -Acute hypoxic and hypercapnic respiratory failure, POA- -Morbid obesity BMI 63.2 -Permanent atrial fibrillation -Permanent pacemaker -CODE STATUS DO NOT RESUSCITATE -Moderate cognitive impairment -Hypothyroid -Chronic medical debility -Essential hypertension -Hypertensive heart disease -Chronic metabolic alkalosis compensated Disposition: [facility]. Patient Condition at Discharge: Stable Plan - Discharge Summary Discharge Rx Participant: No New Discharge Prescriptions: New Megestrol [Megace] 40 mg PO BID #6 tab Cefuroxime Axetil [Ceftin] 500 mg PO BID 3 Days #6 tab Continue Nystatin 100,000 Unit/gm Powd [Mycostatin Powder] 1 applic TOPICAL Q6H PRN PRN Reason: YEAST Magnesium Hydroxide [Milk of Magnesia] 2,400 mg PO DAILY PRN PRN Reason: Constipation Bisacodyl [Dulcolax] 10 mg PO Q72H PRN PRN Reason: Constipation Cholecalciferol [Vitamin D3 (25 Mcg = 1000 Iu)] 1,000 unit PO BID@0700,1900 Acetaminophen [Tylenol] 325 mg PO Q6H PRN MDD 3 GRAMS/24 HOURS PRN Reason: Fever And/ Or Pain Rivaroxaban [Xarelto] 15 mg PO DAILY@1900 traZODone HCL 100 mg PO HS@2000 Sennosides-Docusate Sodium [Senokot-S] 1 tab PO HS@2000 Omeprazole 20 mg PO DAILY@1900 Metoprolol Succinate [Toprol XL] 50 mg PO DAILY@0700 Levothyroxine Sodium [Synthroid] 25 mcg PO DAILY@0500 Potassium Chloride [Klor-Con 10] 20 meq PO DAILY@0700 Fluticasone Nasal [place] [Flonase Nasal [place]] 1 spray EA NOSTRIL DAILY@0700 Rosuvastatin Calcium [Crestor] 5 mg PO DAILY@0700 Amiodarone [Cordarone] 200 mg PO DAILY@0700 Spironolactone [Aldactone] 25 mg PO DAILY tab Aspirin 81 mg PO DAILY chew Rosuvastatin Calcium [Crestor] 5 mg PO DAILY Furosemide [Lasix] 20 mg PO BID@0700,1400 Albuterol Inhaler [Ventolin Hfa Inhaler] 1 puff INHALATION RT-QID PRN PRN Reason: shortness of breath Discontinued Megestrol [Megace] 40 mg PO BID Discharge Medication List Acetaminophen [Tylenol] 325 mg PO Q6H PRN MDD 3 GRAMS/24 HOURS 12/21/19 [History] Amiodarone [Cordarone] 200 mg PO DAILY@0712/21/19 [History] Bisacodyl [Dulcolax] 10 mg PO Q72H PRN 12/21/19 [History] Cholecalciferol [Vitamin D3 (25 Mcg = 1000 Iu)] 1,000 unit PO BID@0700,1900 12/21/19 [History] Fluticasone Nasal [place] [Flonase Nasal [place]] 1 spray EA NOSTRIL DAILY@0712/21/19 [History] Levothyroxine Sodium [Synthroid] 25 mcg PO DAILY@49912/21/19 [History] Magnesium Hydroxide [Milk of Magnesia] 2,400 mg PO DAILY PRN 12/21/19 [History] Metoprolol Succinate [Toprol XL] 50 mg PO DAILY@69912/21/19 [History] Nystatin 100,000 Unit/gm Powd [Mycostatin Powder] 1 applic TOPICAL Q6H PRN 12/21/19 [History] Omeprazole 20 mg PO DAILY@189912/21/19 [History] Potassium Chloride [Klor-Con 10] 20 meq PO DAILY@69912/21/19 [History] Rivaroxaban [Xarelto] 15 mg PO DAILY@189912/21/19 [History] Rosuvastatin Calcium [Crestor] 5 mg PO DAILY@69912/21/19 [History] Sennosides-Docusate Sodium [Senokot-S] 1 tab PO HS@199912/21/19 [History] traZODone HCL 100 mg PO HS@199912/21/19 [History] Aspirin 81 mg PO DAILY chew 12/24/19 [Rx] Spironolactone [Aldactone] 25 mg PO DAILY tab 12/24/19 [Rx] Albuterol Inhaler [Ventolin Hfa Inhaler] 1 puff INHALATION RT-QID PRN 01/08/20 [History] Furosemide [Lasix] 20 mg PO BID@0700,1400 01/08/20 [History] Rosuvastatin Calcium [Crestor] 5 mg PO DAILY 01/08/20 [History] Cefuroxime Axetil [Ceftin] 500 mg PO BID 3 Days #6 tab 01/11/20 [Rx] Megestrol [Megace] 40 mg PO BID #6 tab 01/11/20 [Rx] Follow up Appointment(s)/Referral(s): Mayur Pratt MD [Primary Care Provider] - 01/15/20 2:00 pm [facility], [NON-STAFF] - As Needed
[2020-01-11 15:05] VITALS: BP 112/69; RESP 17; TEMP 98.2
== END 2020-01-11 16:20 | DRG 177 ==
LOC: EC 01:52 → 4SSUR 04:31
PROVIDERS: ADMIT Hospitalist; ATTEND Hospitalist
DX: J15.6 Pneumonia due to other Gram-negative bacteria (principal); J96.22 Acute and chronic respiratory failure with hypercapnia; J96.21 Acute and chronic respiratory failure with hypoxia; I50.33 Acute on chronic diastolic (congestive) heart failure; I48.21 Permanent atrial fibrillation; Z68.43 Body mass index [BMI] 50.0-59.9, adult; E87.3 Alkalosis; I11.0 Hypertensive heart disease with heart failure; E66.01 Morbid (severe) obesity due to excess calories; G31.84 Mild cognitive impairment of uncertain or unknown etiology; E03.9 Hypothyroidism, unspecified; Z66 Do not resuscitate; E78.5 Hyperlipidemia, unspecified; F32.9 Major depressive disorder, single episode, unspecified; E55.9 Vitamin D deficiency, unspecified; G47.00 Insomnia, unspecified; R53.81 Other malaise; M19.90 Unspecified osteoarthritis, unspecified site; Z79.82 Long term (current) use of aspirin; Z79.890 Hormone replacement therapy; Z79.818 Long term (current) use of other agents affecting estrogen receptors and estrogen levels; Z79.01 Long term (current) use of anticoagulants; Z79.899 Other long term (current) drug therapy; Z71.3 Dietary counseling and surveillance; Z87.891 Personal history of nicotine dependence; Z85.42 Personal history of malignant neoplasm of other parts of uterus; Z95.0 Presence of cardiac pacemaker; Z74.01 Bed confinement status; Z80.0 Family history of malignant neoplasm of digestive organs
CPT/HCPCS: 36415; 71045; 80048; 80053; 83880; 84145; 84484; 85025; 85027; 99285